=== PATIENT | female | born 1945 | race Caucasian/White ===

== ENCOUNTER 2023-11-24 03:45 | Inpatient (IN) | payer MEDICARE, MEDICAID, SELFPAY ==
[2023-11-24] VITALS (54 sets, daily range): BP systolic 75–158; BP diastolic 44–86; PULSE 69–125; RESP 15–44; TEMP 36.8–38.7; O2SAT 78–100; BMI 27.2
--- NOTE | 2023-11-24 | ECHO_ITS ---
Patient Info Name: Aline Gomez Age: 78 years : 1945 Gender: Female Ht: 65 in Wt: 163 lbs BSA: 1.86 m2 HR: 107 bpm BP: 140 / 62 mmHg Heart Rhythm: Sinus Rhythm Technical Quality: Fair Exam Date: 11/24/2023 1:59 PM Exam Location: Echo Lab Patient Status: Inpatient Admit Date: 11/24/2023 Staff Ordering Physician: Memo Moore MD Operator Assistant I Cementing: Mckenzie Gorman RDCS Attending Provider: Anselmo Moser MD Exam Type: CA echo doppler color flow Study Info Indications - chf Complete two-dimensional, color flow and Doppler transthoracic echocardiogram is performed. Summary 1. Complete two-dimensional, color flow and Doppler transthoracic echocardiogram is performed. 2. Mild LV enlargement with systolic dysfunction ejection fraction approximately 35%. 3. Paradoxical septal motion due to bundle branch block. 4. Mild aortic valve stenosis valve area 1.2 cm2. 5. Trivial AI. Left Ventricle Left ventricular chamber dimension is mildly enlarged. Left ventricular systolic function is moderately reduced, estimated at 35-40%. Left ventricular septal wall motion is abnormal with septal motion related to bundle branch block. The left ventricular diastolic function is grade I diastolic dysfunction. Right Ventricle Right ventricular chamber dimension is normal. Left Atria Left atrial chamber dimension is mildly enlarged. Right Atria Right atrial chamber dimension is normal. Aortic Valve The aortic valve is trileaflet. There is mild aortic valve stenosis. There is trace aortic valve regurgitation. Pulmonic Valve The pulmonic valve is not well visualized. Mitral Valve The mitral valve has normal leaflets. There is no mitral valve regurgitation. Tricuspid Valve The tricuspid valve leaflets are normal. There is trace tricuspid valve regurgitation. Pericardium/Pleural The pericardium appears normal. Aorta The aortic root size at the sinus of Valsalva is normal. Report Signatures
--- NOTE | ~2023-11-24 | XR_ITS ---
Portable chest x-ray Comparison: 11/25/2023 Clinical History: Respiratory failure Findings: Endotracheal tube and NG tube are in satisfactory positions. Probable minimal groundglass pulmonary disease present diffusely. Stable calcified right midlung granuloma. Cardiomediastinal silh ouette is stable. Bones and soft tissues are unremarkable. Impression: Probable minimal diffuse pulmonary groundglass disease. Correlate for pulmonary edema or atypical inf ection. Support tubes, as above. Reviewed, dictated and finalized at [facility]. CEMENTER Impression: Probable minimal diffuse pulmonary groundglass disease. Correlate for pulmonary edema or atypical infection. Support tubes, as above.
--- NOTE | ~2023-11-24 | XR_ITS ---
Portable chest x-ray Comparison: 11/27/2023 Clinical History: Respiratory failure Findings: Endotracheal tube and NG tube are in satisfactory position. There is extensive groundglass pulmonary disease. Cardiomediastinal silhouette is stable. Bones and soft tissues are unremarkable. Impression: Stable diffuse groundglass pulmonary disease, relatively sparing the apices. Support tubes, as above. Reviewed, dictated and finalized at location . OR FIELD ENGINEER Impression: Stable diffuse groundglass pulmonary disease, relatively sparing the apices. Support tubes, as above.
--- NOTE | ~2023-11-24 | XR_ITS ---
EXAMINATION: XR chest 1V portable DATE: 11/25/2023 05:23 INDICATION: Respiratory failure. TECHNIQUE: A single frontal view of the chest was obtained. COMPARISON: Chest single view 11/24/2023, chest CT 11/24/2023 FINDINGS: There are interstitial and airspace opacities throughout the lungs bilaterally. A calcified right lung nodule is consistent with old granulomatous disease. No pleural effusion or pneumothorax. The heart size is normal. The endotracheal tube tip is 3.2 cm above the phillip. The nasogastric tube tip is in the stomach. IMPRESSION: 1. Diffuse lung disease with mild improvement, consistent with pulmonary edema versus pneumonia. Reviewed, dictated and finalized at location A. INIST CLASS B
--- NOTE | ~2023-11-24 | XR_ITS ---
EXAMINATION: XR abdomen gastric tube insert INDICATION: OG tube placement TECHNIQUE: Portable AP KUB-NG at 1432 hours COMPARISON: 11/24/2023 FINDINGS: The OG tube is followed as far as the stomach. The proximal side port is in the stomach. Th e endotracheal tube is approximately 4.5 cm above the phillip. Diffuse lung disease is again noted, li mercy pulmonary edema. IMPRESSION: 1. OG tube in the stomach. Reviewed, dictated and finalized at location L. CUSTOMIZER IMPRESSION: 1. OG tube in the stomach.
--- NOTE | ~2023-11-24 | US_ITS ---
EXAMINATION: US venous doppler [facility] DATE: 11/24/2023 15:43 INDICATION: Possible liver malignancy. Chronic DVT. TECHNIQUE: Grayscale images without and with compression and Doppler images of the bilateral lower ex tremity veins were obtained. COMPARISON: None FINDINGS: The right common femoral vein, profunda (deep) femoral vein, femoral vein, popliteal vein, peroneal v ein, posterior tibial veins, and greater saphenous vein are patent. The left common femoral vein is partially compressible, with eccentric intraluminal thrombus. The pro adrianne (deep) femoral vein, femoral vein, popliteal vein, peroneal vein, posterior tibial veins, and greater saphenous vein are patent. IMPRESSION: Likely chronic nonocclusive left common femoral vein thrombus. Otherwise patent bilateral lower extre mity veins. No evidence of acute deep venous thrombosis. Reviewed, dictated and finalized at location K. R WEIGHER IMPRESSION: Likely chronic nonocclusive left common femoral vein thrombus. Otherwise patent bilateral lower extremity veins. No evidence of acute deep venous thrombosis.
--- NOTE | ~2023-11-24 | CT_ITS ---
EXAMINATION: CT chest abdomen pelvis wo con DATE: 11/24/2023 06:36 INDICATION: Abdominal pain. TECHNIQUE: Computed tomography (CT) of the chest, abdomen, and pelvis was performed without intraveno us contrast. Automated exposure control and iterative reconstruction technique were employed. The dos e-length product was 904.99 mGy-cm. COMPARISON: None FINDINGS: CHEST CT: There are groundglass opacities and septal thickening throughout the lungs bilaterally. A calcified r ight lung nodule and calcified right hilar lymph nodes are consistent with old granulomatous disease. No pleural effusion. The heart size is normal. There are coronary artery calcifications. No pericard ial effusion. There is chronic anterior wedging of multiple midthoracic vertebral bodies. There is mo derate thoracic spondylosis. ABDOMEN/PELVIS CT: Calcifications in the liver and spleen are consistent with old granulomatous disease. There is an ill -defined 10 cm hypodense mass in the liver. Calcifications in the liver and spleen are consistent wit h old granulomatous disease. The gallbladder is absent. The pancreas, adrenal glands, and kidneys are normal. There is calcified atherosclerosis of the aorta and many of the other arteries. There is div erticulosis of the colon without evidence of diverticulitis. There are no dilated loops of bowel. The appendix is not visualized. There are no pathologically enlarged lymph nodes. There is no free intra peritoneal fluid. There is lumbar levoscoliosis and severe spondylosis. IMPRESSION: 1. Diffuse lung disease, likely moderate pulmonary edema. 2. 10 cm liver mass. The differential diagnosis includes focal steatosis, malignancy, and hemangioma. Abdomen MRI without and with contrast is recommended. Reviewed, dictated and finalized at location E. SETTER IMPRESSION: 1. Diffuse lung disease, likely moderate pulmonary edema. 2. 10 cm liver mass. The differential diagnosis includes focal steatosis, malig julius, and hemangioma. Abdomen MRI without and with contrast is recommended.
--- NOTE | ~2023-11-24 | CT_ITS ---
EXAMINATION: CT chest abdomen pelvis wo con DATE: 11/27/2023 10:05 INDICATION: Liver mass. Alveolar hemorrhage. Pneumonia. TECHNIQUE: Computed tomography (CT) of the chest, abdomen, and pelvis was performed with 100 mL Omnip aque-350 intravenous contrast. Automated exposure control and iterative reconstruction technique were employed. The dose-length product was 1454.82 mGy-cm. COMPARISON: 11/24/2023 FINDINGS: CHEST CT: Endotracheal tube tip is 3.2 cm above the phillip. Significant interval progression of diffuse groundg lass opacities throughout both lungs with more dense consolidation with air bronchograms and without evident volume loss in the dependent aspect of the bilateral upper and lower lobes. There are very sm all bilateral pleural effusions. Heart size is normal. Atherosclerotic coronary artery calcifications . No pericardial effusion. Endobronchial filling defect in the left mainstem bronchus which is new si nce study 3 days prior most consistent with mucous. Calcified nodules in the superior segment of the right lower lobe and calcified right hilar lymph nodes consistent with old granulomatous disease. Hea rt size is normal. Atherosclerotic coronary artery calcifications. No pericardial effusion. Thoracic aorta is normal in caliber. No pathologically enlarged thoracic lymphadenopathy. Moderate thoracic sp ondylosis with chronic anterior wedging of multiple mid thoracic vertebral bodies. ABDOMEN/PELVIS CT: Nasogastric tube tip in the stomach. A few hepatic and splenic calcifications consistent with old gra nulomatous disease. Again seen is a an approximately 12 cm masslike region of decreased density in th e cephalad aspect of the right hepatic lobe. Gallbladder is absent. Pancreas, bilateral adrenal gland s and kidneys are normal. Severe diverticulosis with descending and sigmoid colon predominance. No fo ramirez surrounding inflammatory stranding to suggest diverticulitis. The appendix is not visualized. No pericecal inflammatory change to suggest acute appendicitis. No bowel obstruction. [place] catheter wit hin the decompressed bladder. Uterus and bilateral adnexa are unremarkable. Minimal ascites scattered throughout the abdomen and pelvis. No abscess or free intraperitoneal gas. No pathologically enlarge d abdominal or pelvic lymphadenopathy. The left external and common iliac veins appear diminutive wit h central calcification potentially chronically occluded with multiple subcutaneous collaterals exten ding between the left and right inguinal regions. Mild lumbar levocurvature with severe spondylosis. IMPRESSION: 1. Interval progression of diffuse lung disease which could represent either severe pulmonary edema, pneumonia or combination thereof. 2. Very small bilateral pleural effusions. 3. 12 cm masslike region of decreased density at the cephalad aspect right hepatic lobe which could r epresent focal hepatic steatosis, malignancy either primary or metastatic disease or other benign mitzi plasm such as hemangioma. Recommend further evaluation with pre and postcontrast MRI when clinically appropriate. 4. Extensive diverticulosis. 5. Minimal ascites. Reviewed, dictated and finalized at location A. WORK WRAPPER EXAMINER IMPRESSION: 1. Interval progression of diffuse lung disease which could represent either se sierra pulmonary edema, pneumonia or combination thereof. 2. Very small bilateral pleural effusions. 3. 12 cm masslike region of decreased density at the cephalad aspect right hepa tic lobe which could represent focal hepatic steatosis, malignancy either prima ry or metastatic disease or other benign neoplasm such as hemangioma. Recommend further evaluation with pre and postcontrast MRI when clinically appropriate. 4. Extensive diverticulosis. 5. Minimal ascites.
--- NOTE | ~2023-11-24 | XR_ITS ---
EXAMINATION: XR abdomen gastric tube insert, XR chest ET placement DATE: 11/24/2023 11:05 INDICATION: Intubation. Orogastric tube insertion. TECHNIQUE: 1. Portable semierect AP view of the chest was obtained for assessment of endotracheal tube position. 2. Portable semierect AP view of the abdomen was obtained for evaluation of feeding tube placement. COMPARISON: Earlier studies from 11/24/2023 FINDINGS: Chest: Endotracheal tube tip 1.8 cm above the phillip. Diffuse interstitial and mild patchy airspace opacitie s throughout both lungs. No pleural effusion or pneumothorax. The cardiomediastinal silhouette is nor mal. KUB: Nasogastric tube extends into the stomach into the duodenum with distal tip near the level of the lig ament of Treitz and proximal side port in the third portion of duodenum. No dilated loops of gas-fill ed bowel to suggest obstruction. Mild lumbar levocurvature with severe spondylosis. IMPRESSION: 1. Endotracheal tube tip in expected position 1.8 cm above the phillip. 2. Nasogastric tube extends through the stomach into duodenum with distal tip near the ligament of Tr eitz. Consider withdrawal by [address] the distal tip within the stomach. 3. Diffuse bilateral lung disease most likely moderate pulmonary edema with differential including pn eumonia. Reviewed, dictated and finalized at location A. WORKER BULBS IMPRESSION: 1. Endotracheal tube tip in expected position 1.8 cm above the phillip. 2. Nasogastric tube extends through the stomach into duodenum with distal tip n ear the ligament of Treitz. Consider withdrawal by [address] the distal ti p within the stomach. 3. Diffuse bilateral lung disease most likely moderate pulmonary edema with dif ferential including pneumonia.
--- NOTE | ~2023-11-24 | XR_ITS ---
EXAMINATION: XR chest 1V portable INDICATION: Respiratory failure TECHNIQUE: Portable AP chest at 1107 hours COMPARISON: 11/26/2023 FINDINGS: Diffuse interstitial and airspace opacities have developed throughout all lung zones. The e ndotracheal tube ends approximately 3.8 cm above the phillip. The nasogastric tube is followed as far as the stomach. Its tip is beyond the inferior margin of the radiograph. No pleural effusion or pneum othorax. The cardiomediastinal silhouette is normal. IMPRESSION: 1. Interval development of diffuse lung disease, consistent with pulmonary edema and/or pneumonia. Reviewed, dictated and finalized at location L. OID IOS DEVELOPER IMPRESSION: 1. Interval development of diffuse lung disease, consistent with pulmonary dede a and/or pneumonia.
--- NOTE | ~2023-11-24 | XR_ITS ---
EXAMINATION: XR chest 1V portable INDICATION: Hypoxia TECHNIQUE: Portable AP chest at 1528 hours COMPARISON: 1107 hours FINDINGS: The endotracheal tube ends approximately 4.4 cm above the phillip. The nasogastric tube is f ollowed as far as the stomach. Its tip is beyond the inferior margin of the radiograph. Diffuse inter stitial and airspace opacities persist throughout all lung zones without significant change. No pleur al effusion or pneumothorax. The cardiomediastinal silhouette is stable. IMPRESSION: 1. Stable diffuse lung disease, consistent with pneumonia and/or pulmonary edema. Reviewed, dictated and finalized at location L. RONMENTAL SERVICES FLOOR TECH IMPRESSION: 1. Stable diffuse lung disease, consistent with pneumonia and/or pulmonary dedehumera rojas
--- NOTE | ~2023-11-24 | XR_ITS ---
EXAMINATION: XR chest 1V portable DATE: 11/24/2023 04:46 INDICATION: Weakness. TECHNIQUE: A single frontal view of the chest was obtained. COMPARISON: None. FINDINGS: A calcified right lung nodule is consistent with old granulomatous disease. No pleural effu yi or pneumothorax. The heart size is normal. IMPRESSION: 1. No acute cardiopulmonary disease. Reviewed, dictated and finalized at location E. WEB DEVELOPER
--- NOTE | ~2023-11-24 | CT_ITS ---
Non-contrast Head CT History: Encephalopathy Technique: Axial non-contrast imaging of the brain was performed. Dose reduction technique was used on this scan by utilizing automated exposure control and iterative reconstruction technique. The dose -length product (DLP) was 605.33 mGy-cm. Findings: There is no evidence of intracranial hemorrhage, mass lesion, or acute infarct. Brain par enchyma appears normal. The ventricles and subarachnoid spaces are normal in size. The calvarium ap pears normal. The visualized paranasal sinuses and mastoid air cells are clear. Impression: No significant abnormality seen. Reviewed, dictated and finalized at location . ULA CLERK Impression: No significant abnormality seen.
--- NOTE | 2023-11-24 04:03 | ECG_ITS ---
Measurements Intervals [place] Rate: 96 P: 20 AL: 161 QRS: -37 QRSD: 146 T: 113 QT: 382 QTc: 485 Interpretive Statements SINUS RHYTHM WITH SINUS ARRHYTHMIA LEFT AXIS DEVIATION [QRS AXIS < -30] LEFT BUNDLE BRANCH BLOCK [120+ ms QRS DURATION, 80+ ms Q/S IN V1/V2, 85+ ms R IN I/aVL/V5/V6] ABNORMAL ECG NO PREVIOUS ECG AVAILABLE FOR COMPARISON Electronically Signed On 11-24-2023 7:46:14 FINANCIAL INSTITUTION MANAGER by Domo Tuttle M.D.
[2023-11-24] MEDS: ONDANSETRON INJ 4 MG/2 ML VIAL IV PUSH (04:55)
[2023-11-24 04:59] LABS: Basophils Percent Auto 0.2 % (0.2-1.2); Eosinophils Percent Auto 0.1 % (0-4.4); Hemoglobin 8.2 g/dL (12.0-15.0); Immature Granulocyte Absolute 0.33 K/mm3 (0.00-0.031); Immature Granulocyte Percent A 1.8 % (0-0.5); Lymphocytes Absolute Auto 0.88 K/mm3 (0.9-3.2); Lymphocytes Percent Auto 4.7 % (18.3-44.2); Mean Corpuscular HGB Conc 31.5 g/dl (32-36); Mean Corpuscular Hemoglobin 27.8 pg (26-34); Mean Corpuscular Volume 88.1 fl (80-100); Mean Platelet Volume 11.5 fl (7.4-10.4); Monocytes Absolute Auto 1.6 K/mm3 (0.1-0.6); Monocytes Percent Auto 8.4 % (2.6-8.5); Neutrophils Absolute Auto 15.9 K/mm3 (1.3-6.7); Neutrophils Percent Auto 84.8 % (45.5-73.1); Platelet Count Result 284 k/mm3 (150-375); Red Blood Count 2.95 M/mm3 (4.2-5.4); White Blood Count 18.8 K/mm3 (4.5-10.0)
[2023-11-24 05:16] LABS: Alanine Aminotransferase 61 U/L (6-35); Albumin Level 2.9 g/dL (3.5-5.1); Alkaline Phosphatase 112 U/L (38-126); Anion Gap 14 mmol/L (8-16); Appearance Urine Turbid (Clear); Aspartate Amino Transferase 96 U/L (14-36); Bacteria Urine None Seen /hpf; Bilirubin Urine 1+ (Negative); Blood Urea Nitrogen 67 mg/dL (7-17); Blood Urine Negative (Negative); Calcium 8.7 mg/dL (8.4-10.2); Carbon Dioxide 19 mmol/L (22-30); Chloride 96 mmol/L (98-107); Color Urine Dark Yellow (Yellow); Estimated Glomerular Filt Rate 24; Glucose 268 mg/dL (65-110); Glucose Urine UA Negative (Negative); Ketones Urine Trace mg/dL (Negative); Leukocyte Esterase Ur Negative LEU/UL (Negative); Need Manual Microscopic Reviewed; Nitrate Urine Negative (Negative); Non Pathogenic Casts >20; Potassium 4.7 mmol/L (3.4-5.0); Protein Urine 1+ mg/dL (Negative); RBC Urine 0-2 /hpf (0-2); Sodium 129 mmol/L (137-145); Specific Grav Ur 1.022 (1.001-1.035); Squamous Epithelial Cell Urine Occasional /hpf (Few); WBC Urine 0-5 /hpf
[2023-11-24 05:17] LABS: Lipase 16 U/L (23-300); Magnesium 1.4 mg/dL (1.6-2.3)
--- NOTE | 2023-11-24 05:17 | PC.NURSE ---
Pt's O2 sat upon arrival was reading 70's with good wave form, but then would gradually move up to 89%. Pt was tachypnic 40's. Discussed with Dr Soni that I put pt on O2 and found to increase her sat to 95%. Pt now tachypnic 30's. ABG ordered.
[2023-11-24 05:18] LABS: Add Urine Microscopic? YES
[2023-11-24 05:23] LABS: Lactic Acid Reflex 4.4 mmol/L (0.7-2.0)
[2023-11-24 05:27] LABS: Alveolar/Arterial O2 Gradient 161.4 mmHg; Base Excess ABG -3.3 mEq/l (+/-2.0); Fractional Inspired Oxygen 36 %; Oxygen Content ABG 11.9 %vol (16.0-22.0); Oxygen Saturation ABG 92.8 % (95.0-100.0); Oxyhemoglobin 90.8 % THb (90.0-100.0); PCO2 ABG 29.5 mmHg (35.0-45.0); PO2 ABG 61.1 mmHg (80.0-100.0); Total Hemoglobin 9.3 g/dL (12.0-18.0); pH ABG 7.449 (7.350-7.450)
[2023-11-24 05:28] LABS: Device NASAL CANNULA; Modified Allen's Test Pass; Site Drawn RIGHT RADIAL
[2023-11-24 05:32] LABS: Influenza A QL RT-PCR Negative (Negative); Influenza B QL RT-PCR Negative (Negative); RSV RNA, RT-PCR Negative (Negative); SARS-CoV-2 RNA PCR Negative (Negative)
[2023-11-24 05:33] LABS: Troponin I 0.087 ng/mL (0.000-0.034)
--- NOTE | 2023-11-24 05:38 | ED.GENADULT ---
HPI - General Adult General Chief complaint: Unspecified Stated complaint: UTI, SICK CASE Time Seen by Provider: 11/24/23 03:59 History of Present Illness HPI narrative: Patient 78-year-old female who presents emergency department with chief complaint of generalized weakness. Patient has recently had nausea and vomiting for 2 days also some shortness of breath patient reports she was diagnosed with the UTI on Friday and started on Cipro patient has been nauseated since starting the Cipro med has also been having problems where she has been breathing fast. Related Data Allergies Allergy/AdvReac Type Severity Reaction Status Date / Time No Known Allergies Allergy Verified 11/24/23 04:55 Review of Systems Review of Systems: A 10 system review of systems was completed on the patient and is negative except for what is stated in the HPI. Nursing and ancillary documentation was reviewed. Exam Narrative: GENERAL: Well-appearing, well-nourished, and in no acute distress. HEAD: Normocephalic, atraumatic. EYES: PERRLA and EOMI. ENT: Nares clear, no rhinorrhea or epistaxis. Mucous membranes moist. NECK: Supple. CHEST: Clear to auscultation. No respiratory distress. HEART: Regular rate and rhythm. No murmur heard. Normal peripheral pulses. ABDOMEN: Soft, nontender, nondistended, normal active bowel sounds. EXTREMITIES: Normal range of motion. No edema. SKIN: Warm, dry, no rash. NEURO: No focal deficits. Alert and oriented x3. PSYCH: Normal mood and affect. Course Vital Signs Vital signs: Vital Signs Temperature 36.8 C 11/24/23 04:00 Pulse Rate 98 11/24/23 04:00 Respiratory Rate 44 H 11/24/23 04:00 Blood Pressure 103/55 L 11/24/23 04:00 Pulse Oximetry 78 L 11/24/23 04:00 Temperature 36.8 C 11/24/23 04:00 Pulse Rate 91 11/24/23 06:46 Respiratory Rate 41 H 11/24/23 06:46 Blood Pressure 102/50 L 11/24/23 06:46 Pulse Oximetry 94 11/24/23 07:09 Oxygen Delivery Nasal Cannula 11/24/23 07:09 Oxygen Flow Rate 8 11/24/23 07:09 Medical Decision Making [facility] Narrative Medical decision making narrative: Differential diagnosis includes sepsis, UTI, ureterolithiasis, pneumonia, viral syndrome Chest x-ray did not show any focal infiltrate CT chest abdomen pelvis showed a 10 cm liver mass and also showed diffuse lung disease. [place] [address] electrolytes showed renal insufficiency with a creatinine at 2.0 lactic acid was elevated at 4.4 procalcitonin was elevated at 2 point 5 troponin was elevated at 0.087 magnesium was low at 1.4 Patient received 30 per kilos of saline boluses patient also received cefepime and vanc to cover for sepsis. The patient was negative for COVID flu and RSV The case was discussed with the hospitalist the patient will receive further care in the inpatient setting. Vital Signs Vital Signs: Vital Signs Temperature 36.8 C 11/24/23 04:00 Pulse Rate 98 11/24/23 04:00 Respiratory Rate 44 H 11/24/23 04:00 Blood Pressure 103/55 L 11/24/23 04:00 Pulse Oximetry 78 L 11/24/23 04:00 Temperature 36.8 C 11/24/23 04:00 Pulse Rate 91 11/24/23 06:46 Respiratory Rate 41 H 11/24/23 06:46 Blood Pressure 102/50 L 11/24/23 06:46 Pulse Oximetry 94 11/24/23 07:09 Oxygen Delivery Nasal Cannula 11/24/23 07:09 Oxygen Flow Rate 8 11/24/23 07:09 Lab Data 11/24/23 04:47 11/24/23 04:47 Labs: Lab Results 11/24/23 Range/Units 04:47 WBC 18.8 H (4.5-10.0) K/mm3 RBC 2.95 L (4.2-5.4) M/mm3 Hgb 8.2 L (12.0-15.0) g/dL Hct 26.0 L (37.0-47.0) % MCV 88.1 (80-100) fl MCH 27.8 (26-34) pg MCHC 31.5 L (32-36) g/dl RDW 13.0 (11.5-14.5) % Plt Count 284 (150-375) k/mm3 MPV 11.5 H (7.4-10.4) fl Immature Gran % (Auto) 1.8 H (0-0.5) % Neut % (Auto) 84.8 H (45.5-73.1) % Lymph % (Auto) 4.7 L (18.3-44.2) % [place] % (Auto) 8.4 (2.6-8.5) % E
[2023-11-24 05:43] LABS: Procalcitonin 2.5 ng/mL
[2023-11-24] MEDS: SODIUM CHLORIDE 0.9% IV 1,000 ML 999 ML IV CONT ×3 (05:45→20:10)
[2023-11-24] MEDS: MAGNESIUM SULF 2 GM/WATER 50ML 2 GM/50 ML BAG IVPB (05:47)
--- NOTE | 2023-11-24 07:14 | PC.NURSE ---
Report to MARCELINA Alvarado.
[2023-11-24 07:30] LABS: Lactic Acid Reflex 2.8 mmol/L (0.7-2.0)
[2023-11-24 07:51] LABS: Partial Thromboplastin Time 96.2 SECONDS (22.3-36.8)
[2023-11-24 07:52] LABS: Prothrombin Time > 120.0 Seconds (11.1-14.7)
[2023-11-24 07:54] LABS: Reflex Lactic Acid Yes or No Add Lactic
[2023-11-24 07:56] LABS: INR > 20.0
[2023-11-24] MEDS: PHYTONADIONE INJ 10 MG/ML AMP 5 MG SUB-Q (08:09)
[2023-11-24] MEDS: CEFEPIME 2 GM/NS 50 ML 2 GM/50 ML BAG IVPB (08:09)
[2023-11-24 08:38] LABS: Lactic Acid 2.8 mmol/L (0.7-2.0)
--- NOTE | 2023-11-24 09:53 | PM.IMHP ---
H&P: HPI History of Present Illness Date/Time: 11/24/23 09:53 Chief Complaint: Weakness Narrative: 78yo female with hx of DM and DVT >10 yrs ago on Warfarin here for weakness. Patient was noted to have elevated INR about 2 weeks ago. She normally takes 6 mg daily except for 4 mg on Xahdol-Dikczawjz-Xtglis. Her physician told her stop her Coumadin for 2 days and then decrease the Coumadin dose to 4 mg daily. She has been on this dose for about a week. She has not checked her INR since that time. In the interim., she has developed fatigue and noted that her glucose was intermittently poorly controlled. She was seen at an outside hospital few days ago. Patient also was having nausea and vomiting. She diagnosed with the UTI and treated with ciprofloxacin and antinausea medication. She denies any melena or hematochezia. No hematuria or dysuria. She has been feeling weak. No fevers and but having subjective chills. She denies any history of atrial fibrillation, coronary disease, thyroid disease, sleep apnea, COPD or asthma. No history of kidney disease. She does not believe that she has anemia. No home O2. She walks unassisted. She has a history of DVT in the left lower extremity that was extensive and this was greater than 10 years ago. No history of PE. Patient continued to have the nausea and vomiting. Son states the emesis was mostly carney color became more blackish carney. He denies that it was coffee-ground emesis. She presented to the emergency room for evaluation. In the emergency room, she was tachypneic with respiratory rate of 44 her pulse ox was 78% on room air. Blood pressure was 103/55. She was afebrile. Influenza, COVID and RSV PCR were negative. Lactic acid was 4.4. White count was 18 K with left shift. Hemoglobin was 8.2. Platelet count was normal. ABG shows 7.4 03/17/2061 on 4 L. Sodium was 129, bicarb 19, BUN 67 and creatinine 2. Glucose was 268. Troponin elevated at 0.087. Procalcitonin was 2.5. Urinalysis had some minor abnormalities but not consistent with UTI. CT of the chest, abdomen and pelvis showed diffuse lung disease likely moderate pulmonary edema. She also had a 10 cm liver mass with differential diagnosis listed. Blood cultures collected. Patient was given ondansetron. She was started on cefepime. Magnesium was replaced. Vancomycin also was ordered. There was some difficulty obtaining her coagulation panel but this did return showing PT greater than 120, INR greater than 20 and PTT 96. Initially she was given vitamin K 5 mg subQ in the ER. She was admitted to IMU but was noted to have hemoptysis. No epistaxis. Her oxygen requirement has increased to 8L. Case discussed with Hematology who recommended vitamin K 10 mg IV once and FFP. Discussed with fence erector supervisor with plans to transfer to ICU. Review of Systems Review of Systems: All systems reviewed & are unremarkable except as noted in HPI and below PMFSH Past Medical History Medical History Diabetes mellitus DVT (deep venous thrombosis) extensive LLE Gout Peripheral neuropathy Surgical History Surgical History Hx of cholecystectomy with possible appy at the same time Family History Family History Father Diabetes mellitus Social History Social History Social History: Lives alone. No hx of alcohol, tobacco or drug use. Full code. Nominates her sons to be the individuals who would make decisions for her if she is unable Smoking status: Never smoker Alcohol intake: never Substance use: never Substance use type: does not use Spiritual care concerns: No Meds Home Medications and Allergies Home Medications Medication Instructions Recorded Confirmed Type albuterol sulfate 90 mcg/actuation 2
[2023-11-24 10:05] LABS: Basophils Percent Auto 0.2 % (0.2-1.2); Eosinophils Percent Auto 0.1 % (0-4.4); Hematocrit 26.6 % (37.0-47.0); Hemoglobin 7.8 g/dL (12.0-15.0); Immature Granulocyte Absolute 0.28 K/mm3 (0.00-0.031); Immature Granulocyte Percent A 1.2 % (0-0.5); Lymphocytes Absolute Auto 1.23 K/mm3 (0.9-3.2); Lymphocytes Percent Auto 5.5 % (18.3-44.2); Mean Corpuscular HGB Conc 29.3 g/dl (32-36); Mean Corpuscular Hemoglobin 27.9 pg (26-34); Mean Platelet Volume 11.4 fl (7.4-10.4); Monocytes Absolute Auto 2.1 K/mm3 (0.1-0.6); Monocytes Percent Auto 9.5 % (2.6-8.5); Neutrophils Absolute Auto 18.8 K/mm3 (1.3-6.7); Neutrophils Percent Auto 83.5 % (45.5-73.1); Platelet Count Result 306 k/mm3 (150-375); Red Cell Distribution Width 13.1 % (11.5-14.5); White Blood Count 22.5 K/mm3 (4.5-10.0)
[2023-11-24] MEDS: PHYTONADIONE ADULT INJ 10 MG in DEXTROSE 5% IN WATER 50 ML 100 MG IVPB (10:06)
[2023-11-24] MEDS: VANCOMYCIN 1,000 MG/NS 250 ML 1,000 MG/250 ML BAG 250 MG IVPB (10:06)
[2023-11-24] MEDS: SODIUM CHLORIDE 0.9% IV 1,000 ML 125 ML IV CONT (10:09)
[2023-11-24 10:43] LABS: Macrocytosis 1+ (NORMAL); Platelet Estimate Adequate (Adequate); Schistocytes Rare (NORMAL)
[2023-11-24 10:44] LABS: Hypochromasia 1+ (NORMAL)
[2023-11-24 10:47] LABS: Creatine Kinase 51 U/L (30-135)
[2023-11-24 10:47] LABS: Troponin I 0.069 ng/mL (0.000-0.034)
[2023-11-24] MEDS: ETOMIDATE 20 MG/10 ML AMPUL IV PUSH (10:48)
[2023-11-24] MEDS: PANTOPRAZOLE SODIUM IV 40 MG VIAL IV PUSH ×2 (10:48→20:05)
[2023-11-24] MEDS: ROCURONIUM BROMIDE 50 MG/5 ML VIAL IV PUSH (10:48)
--- NOTE | 2023-11-24 10:48 | WPDPROCEDUR ---
Procedures Intubation Intubation Date: 11/24/23 Intubation Time: 10:30 Consent: Verbal consent obtained from patient and her son at bedside A pre-procedural Time-Out was completed immediately before starting the procedure and confirmed: Patient Identification, Site, Procedure, Patient Position and the Availability of Requisite Equipment: Yes Sedative: etomidate Mg given: 20 Paralytic: rocuronium Mg given: 50 Laryngoscope: fiber optic video scope Assist device used: fiber optic device ET tube size: cuffed Tube secured depth (cm): 23 Tube secured location: lips Tube placement confirmation: visualized tube passing through cords, equal breath sounds bilaterally, no breath sounds over epigastrium and confirmation by capnometry Patient tolerated procedure: well Intubation complications: none Additional comments: few bloody secretions seen in oropharynx and on tracehal inlet
[2023-11-24] MEDS: FENTANYL 2,500MCG/NS250ML(*CRX 2,500 MCG/250 ML BAG IV CONT (10:49)
[2023-11-24] MEDS: MIDAZOLAM 100MG/NS 100ML(*CRX) 100 MG/100 ML BAG IV CONT (10:50)
[2023-11-24 10:51] LABS: Fibrinogen 289 mg/dl (215-510)
[2023-11-24 10:58] LABS: NT Pro B Type Natriuretic Pept 3980 pg/mL (19.9-100)
[2023-11-24 11:04] LABS: Prothrombin Time > 120.0 Seconds (11.1-14.7)
[2023-11-24 11:05] LABS: D Dimer 15.78 ug/mL (<0.48); INR > 20.0
[2023-11-24 11:19] LABS: Iron 31 ug/dL (37-170); Percent Iron Saturation 16 % (20-50)
[2023-11-24 11:20] LABS: Hemoglobin A1C 8.5 % (<5.7)
--- NOTE | 2023-11-24 11:22 | ADMGEN ---
This patient, Aline Gomez, was admitted to Intensive Care Unit-5 on 11/24/23 at 0953. Patient/family oriented to hospital policies and general routines including ID bracelet, bed and alarms, visiting hours, pain management, procedures, bathroom and other care routines, personal items, smoking policy, room service/diet, and visiting hours. Information on how to activate the Rapid Response Team has been discussed. Patient/Family are encouraged to report perceived risks to care and to ask questions if they do not understand what they are told or what they should do.
--- NOTE | 2023-11-24 11:23 | ADMGEN ---
This patient, Aline Gomez, was admitted to IMU 207 on 11/24/23 at 0849. Patient/family oriented to hospital policies and general routines including ID bracelet, bed and alarms, visiting hours, pain management, procedures, bathroom and other care routines, personal items, smoking policy, room service/diet, and visiting hours. Information on how to activate the Rapid Response Team has been discussed. Patient/Family are encouraged to report perceived risks to care and to ask questions if they do not understand what they are told or what they should do.
--- NOTE | 2023-11-24 11:24 | PC.NURSE ---
This patient, Aline Gomez, was transferred to ICU 5 on 11/24/23 at 0953. Personal belongings sent with patient. Report given to Pj HEWITT. Appropriate documentation sent with patient.
--- NOTE | 2023-11-24 11:26 | PC.NURSE ---
Upon admission to IMU, pt appeared pale. She was on 8 L NC, appeared labored, and was abdominal breathing. Pt was coughing up marisela blood into an emesis bag. Son stated that the coughing up blood started after she came back from CT. Dr Moser was notified of patient's condition who promptly saw patient. Dr Moser spoke with Dr Moore and decided to transfer pt to the ICU.
[2023-11-24] MEDS: SODIUM CHLORIDE 0.9% IV 250 ML 30 ML IV CONT (11:32)
[2023-11-24] MEDS: RAPID SEQUENCE INTUBATION KIT 1 EACH (11:33)
[2023-11-24] MEDS: MIDAZOLAM HCL (*CRX) 2 MG/2 ML VIAL 4 MG IV PUSH (11:33)
[2023-11-24] MEDS: HUMAN PROTHROMBIN COMPLEX(PCC) 2,000 UNITS in PREMIXIV 0 ML 504 UNITS IV CONT (11:35)
--- NOTE | 2023-11-24 11:37 | WPDCNINT ---
Assessment and Plan Assessment and plan (1) Acute respiratory failure: Code(s): J96.00 - Acute respiratory failure, unspecified whether with hypoxia or hypercapnia Status: Acute Assessment and Plan: On arrival to ICU patient was hypoxic on 10 L nasal cannula. She was in mild respiratory distress and tachypneic. Using accessory muscles and abdominal breathing. Patient also has hemoptysis and upper GI bleed hence not a candidate for NIPPV Discussed option of intubation and mechanical ventilation secure airway and elevated respiratory distress with the patient and her son the both were agreeable after understanding the risk and benefit. Patient intubated in ICU Vent settings and post intubation chest x-ray reviewed PCR for influenza RSV and COVID negative CT scan of the chest shows diffuse lung disease likely pulmonary edema versus alveolar hemorrhage Reverse coagulopathy Consult pulmonary for possible bronchoscopy Empiric antibiotics vancomycin and cefepime Repeat ABG ordered (2) Elevated troponin: Code(s): R79.89 - Other specified abnormal findings of blood chemistry Status: Acute Assessment and Plan: Likely secondary to bleeding, respiratory failure. Not a candidate for anticoagulation or antiplatelet agent at this time. Obtain echocardiogram (3) Coagulopathy: Code(s): D68.9 - Coagulation defect, unspecified Status: Acute Assessment and Plan: Patient has been on warfarin for many years and her last INR check was more than month ago. States she had DVT in her left leg more than 10 years ago which led to initiation of warfarin. On arrival her INR was more than 20 Patient was given vitamin K and FFP was ordered Patient clearly has active GI bleed and hemoptysis which could be secondary to alveolar hemorrhage. She has been deteriorating with worsening hypoxia and respiratory distress and now requiring intubation and mechanical ventilation. She would probably not tolerate additional volume with FFP administration she will also be needing PRBC I spoke to patient regarding benefits and risks of Kcentra to reverse her coagulopathy. Explained the risk of blood clot formation to both patient and her son and they both verbalized understanding and agreed to proceed. In current situation the benefits outweigh the risks. Obtain Dopplers of lower extremity Will give 2000 units of Kcentra along with 1 unit of FFP which she is already getting. Repeat INR post administration Hold aspirin warfarin (4) Anemia: Code(s): D64.9 - Anemia, unspecified Status: Acute Assessment and Plan: Hemoglobin 7.8. Black OG tube suction In light of active bleeding will transfuse 1 unit of PRBC Monitor serial hemoglobin levels Transfuse additional blood products as needed (5) Hemoptysis: Code(s): R04.2 - Hemoptysis Status: Acute Assessment and Plan: Patient reported hemoptysis on the floor Secondary to pulmonary edema or alveolar hemorrhage which could be secondary to coagulopathy Patient now intubated Reverse coagulopathy Consult pulmonary (6) Upper GI bleed: Code(s): K92.2 - Gastrointestinal hemorrhage, unspecified Status: Acute Assessment and Plan: Patient reported vomiting carney black content at home suggestive of a GI bleed Patient was intubated and OG tube was placed with black suction suggestive upper GI bleed This could be secondary to coagulopathy or other gastric etiology Transfuse 1 unit of PRBC in light of active bleeding Reverse coagulopathy Consult GI IV Protonix q.12 hours (7) Renal insufficiency: Code(s): N28.9 - Disorder of kidney and ureter, unspecified Status: Acute Assessment and Plan: Patient presented with creatinine of 2 Baseline creatinine unknown She is getting volume in the form of PRBC and FFP Monitor urine output electrolytes and creatinine CT scan of abdomen did not show any hydronephrosis or stone Normal
[2023-11-24] MEDS: INSULIN ASPART (*BKC) 100 UNITS/ML SUB-Q ×3 (11:56→23:42)
[2023-11-24 11:57] LABS: Glucose Point of Care 288 mg/dl (65-105)
[2023-11-24 11:59] LABS: Alveolar/Arterial O2 Gradient 568.9 mmHg; Base Excess ABG -5.7 mEq/l (+/-2.0); Fractional Inspired Oxygen 100 %; HCO3 ABG 20.7 mEq/l (22.0-26.0); Oxygen Content ABG 11.2 %vol (16.0-22.0); Oxygen Saturation ABG 96.8 % (95.0-100.0); Oxyhemoglobin 95.2 % THb (90.0-100.0); PCO2 ABG 44.9 mmHg (35.0-45.0); PO2 ABG 99.2 mmHg (80.0-100.0); PO2 FiO2 Ratio Arterial Blood 0.99 %; Total Hemoglobin 8.2 g/dL (12.0-18.0)
[2023-11-24 12:00] LABS: pH ABG 7.281 (7.350-7.450)
[2023-11-24 12:01] LABS: Device VENTILATOR; Modified Allen's Test Pass; Site Drawn RIGHT RADIAL
[2023-11-24 12:02] LABS: Arterial Blood Gas PEEP 8 cmH2O; Arterial Blood Gas Tidal Volume 350 ml; Arterial Blood Gas Vent Mode CMV; Arterial Blood Gas Ventilator rate 20 /MIN
[2023-11-24 12:15] LABS: Folic Acid 5.1 ng/mL (2.76->20); Vitamin B12 > 1000.0 pg/mL (239-931)
--- NOTE | 2023-11-24 12:19 | PM.CNPUL ---
Assessment and Plan Assessment and plan (1) Acute respiratory failure: Code(s): J96.00 - Acute respiratory failure, unspecified whether with hypoxia or hypercapnia Status: Acute Assessment and Plan: A 78-year-old female patient with a history of Diabetes Mellitus and previous episodes of Deep Vein Thrombosis (DVT), who is on long-term anticoagulation therapy, presented with generalized weakness, nausea, vomiting, and a one-day history of recurrent hemoptysis, alongside significantly prolonged Prothrombin Time and INR. She is currently intubated in the intensive care unit due to acute hypoxemic respiratory failure. Chest CT findings reveal diffuse alveolar infiltrates, which align with diffuse alveolar hemorrhage linked to coagulopathy. Other possible diagnoses include viral infections, though she has tested negative for all common viral infections that cause pneumonia. The cause of the coagulopathy remains unclear at this point. There is speculation about a liver mass which may be contributing to the coagulopathy. Alternatively, she may have sepsis, which could also account for the coagulopathy. She is currently hemodynamically stable, receiving 100% oxygen, and continues to have bloody secretions through tracheal suctioning. She is undergoing specific treatment for coagulopathy. The current antibiotic regimen for potential sepsis as a cause of coagulopathy is agreed upon. The plan is to continue with the current conservative management, which includes specific treatment for coagulopathy, antibiotics, and ventilatory support. We will continue to monitor her condition closely. (2) Anemia: Code(s): D64.9 - Anemia, unspecified Status: Acute (3) Coagulopathy: Code(s): D68.9 - Coagulation defect, unspecified Status: Acute (4) Elevated troponin: Code(s): R79.89 - Other specified abnormal findings of blood chemistry Status: Acute (5) Hemoptysis: Code(s): R04.2 - Hemoptysis Status: Acute (6) Diabetes mellitus: Code(s): E11.9 - Type 2 diabetes mellitus without complications Status: Acute (7) Leukocytosis: Code(s): D72.829 - Elevated white blood cell count, unspecified Status: Acute (8) Liver mass: Code(s): R16.0 - Hepatomegaly, not elsewhere classified Status: Acute History of Present Illness History of Present Illness Consult date: 11/24/23 Chief complaint: Sepsis/Leukocytosis/Renal Insufficiency/Hypomagnes Narrative: A 78-year-old female patient, with a history of Deep Vein Thrombosis (DVT) and long-term warfarin use, experienced a prolonged International Normalized Ratio (INR) approximately two weeks ago. Her primary care provider advised a change in her warfarin dosage. Over a week ago, she began experiencing fatigue and symptoms of a urinary tract infection (UTI), leading to a diagnosis of UTI. She was subsequently placed on ciprofloxacin to treat the UTI. In the last three days, she has experienced nausea and vomiting. During her visit to the emergency room last night, she developed a cough with bloody secretions and had multiple instances of coughing up blood. A chest CT was performed, and due to worsening hypoxemia, she was transferred to the intensive care unit where she was intubated. Currently, she is fully sedated, mechanically ventilated, and receiving 100% FiO2. Tracheal suctioning again revealed blood. A chest CT showed widespread ground-glass opacities. Both her Prothrombin Time (PT) and INR have been significantly prolonged, and she is currently receiving specific treatment with fresh frozen plasma and Kcentra. Review of Systems Review of Systems: ROS unobtainable: Yes unobtainable due to endotracheal tube PMFSH Past Medical History Medical History Diabetes mellitus DVT (deep venous thrombosis) extensive LLE Gout Peripheral neuropathy Surgical History Surgical History (Review
[2023-11-24 13:39] LABS: INR 1.6; Prothrombin Time 20.1 Seconds (11.1-14.7)
[2023-11-24 13:56] LABS: Troponin I 0.059 ng/mL (0.000-0.034)
--- NOTE | 2023-11-24 13:56 | ADMGEN ---
This patient, Aline Gomez, was admitted to Intensive Care Unit-5. Patient/family oriented to hospital policies and general routines including ID bracelet, bed and alarms, visiting hours, pain management, procedures, bathroom and other care routines, personal items, smoking policy, room service/diet, and visiting hours. Information on how to activate the Rapid Response Team has been discussed. Patient/Family are encouraged to report perceived risks to care and to ask questions if they do not understand what they are told or what they should do.
--- NOTE | 2023-11-24 14:56 | WPDGICN ---
Assessment and Plan Assessment and plan (1) Anemia: Code(s): D64.9 - Anemia, unspecified Status: Acute Assessment and Plan: hemoglobin is 8.2 at admission and dropped further. She is now receiving 1 unit of blood. (2) Upper GI bleed: Code(s): K92.2 - Gastrointestinal hemorrhage, unspecified Status: Acute Assessment and Plan: Bleeding may not be due to a specific disease but could be secondary to coagulopathy. Nonetheless, given the history of coffee-ground emesis, EGD will be scheduled (3) Coagulopathy: Code(s): D68.9 - Coagulation defect, unspecified Status: Acute Assessment and Plan: she has been chronically on warfarin and has had a mention her INR was greater than 20 on admission. She received vitamin K, 5 mg IM and 10 mg IV has been given FFP (4) Acute respiratory failure: Code(s): J96.00 - Acute respiratory failure, unspecified whether with hypoxia or hypercapnia Status: Acute Assessment and Plan: Chest x-ray reveals: IMPRESSION: 1. Endotracheal tube tip in expected position 1.8 cm above the phillip. 2. Nasogastric tube extends through the stomach into duodenum with distal tip near the ligament of Treitz. Consider withdrawal by [address] the distal tip within the stomach. 3. Diffuse bilateral lung disease most likely moderate pulmonary edema with differential including pneumonia. Plan EGD tomorrow morning GI Consult Note Consult date/time: 11/24/23 14:56 HPI: Aline Gomez is a 78 year old female Who came to the emergency room with complaints of weakness. Her family had stated that she has been weak for the past few days. She also has been found to have an elevated INR 2 weeks ago. she is chronically on Coumadin because of a history of DVT about 10 years ago. Her dose was apparently adjusted but on admission her INR was greater than 20. Her family states that she had been vomiting and it looked mosqueda. A picture was shown to the hospitalist Of the emesis and he told me that it looks more black. There has been no evidence of lower gastrointestinal bleeding so far. Her hemoglobin on admission was 8.2 but subsequently did drop into the sevens. She is now receiving 1 unit of blood. She developed some respiratory distress and is suspected of of having alveolar hemorrhage and has been intubated. An NG tube was placed this morning and some bloody material is being produced from that. She was given vitamin K in the emergency room subcu and also some intravenously as well as FFP. Her INR has come down dramatically now to 1.6. Review of Systems Review of Systems: All systems reviewed & are unremarkable except as noted in HPI and below PMFSH Past Medical History Medical History Diabetes mellitus DVT (deep venous thrombosis) extensive LLE Gout Peripheral neuropathy Surgical History Surgical History Hx of cholecystectomy with possible appy at the same time Family History Family History Father Diabetes mellitus Social History Social History Social History: Lives alone. No hx of alcohol, tobacco or drug use. Full code. Nominates her sons to be the individuals who would make decisions for her if she is unable Smoking status: Never smoker Alcohol intake: never Substance use: never Substance use type: does not use Spiritual care concerns: No Meds Home Medications and Allergies Home Medications Medication Instructions Recorded Confirmed Type albuterol sulfate 90 mcg/actuation 2 puff inhalation QID PRN 11/24/23 11/24/23 History aerosol inhaler Shortness Of Breath Or Wheezing aspirin 81 mg tablet,delayed 81 mg PO DAILY 11/24/23 11/24/23 History release (Adult Low Dose Aspirin) atorv
[2023-11-24 16:21] LABS: Hematocrit 23.7 % (37.0-47.0); Hemoglobin 7.5 g/dL (12.0-15.0); Mean Corpuscular HGB Conc 31.6 g/dl (32-36); Mean Corpuscular Volume 88.4 fl (80-100); Platelet Count Result 226 k/mm3 (150-375); Red Blood Count 2.68 M/mm3 (4.2-5.4); Red Cell Distribution Width 13.6 % (11.5-14.5); White Blood Count 17.3 K/mm3 (4.5-10.0)
[2023-11-24 17:00] LABS: Glucose Point of Care 237 mg/dl (65-105)
[2023-11-24] MEDS: ACETAMINOPHEN 325 MG TABLET 650 MG PO (17:07)
[2023-11-24] MEDS: ACETAMINOPHEN ELIXIR 325 MG/10.15 ML UDC 650 MG PO (19:57)
[2023-11-24] MEDS: MINERAL OIL/WHITE PETROLATUM OINTMENT 1 APPLIC EACH EYE (20:05)
[2023-11-24 20:46] LABS: MRSA (PCR) NOT DETECTED (NOT DETECTE)
[2023-11-24] MEDS: NOREPINEPHRINE 8 MG/D5W 250 ML 8 MG/250 ML BAG 9.38 MG IV CONT (21:03)
[2023-11-24 22:10] LABS: Hematocrit 23.9 % (37.0-47.0); Hemoglobin 7.5 g/dL (12.0-15.0); Mean Corpuscular HGB Conc 31.4 g/dl (32-36); Mean Corpuscular Hemoglobin 27.3 pg (26-34); Mean Corpuscular Volume 86.9 fl (80-100); Mean Platelet Volume 11.4 fl (7.4-10.4); Platelet Count Result 276 k/mm3 (150-375); Red Blood Count 2.75 M/mm3 (4.2-5.4); Red Cell Distribution Width 14.2 % (11.5-14.5); White Blood Count 17.7 K/mm3 (4.5-10.0)
[2023-11-24 22:21] LABS: INR 1.3; Prothrombin Time 16.4 Seconds (11.1-14.7)
[2023-11-24 22:22] LABS: Partial Thromboplastin Time 38.8 SECONDS (22.3-36.8)
[2023-11-24 22:31] LABS: Anion Gap 9 mmol/L (8-16); Blood Urea Nitrogen 67 mg/dL (7-17); Calcium 8.1 mg/dL (8.4-10.2); Carbon Dioxide 20 mmol/L (22-30); Chloride 103 mmol/L (98-107); Estimated CRCL calculation 23 ml/min; Estimated Glomerular Filt Rate 26; Glucose 203 mg/dL (65-110); Potassium 4.2 mmol/L (3.4-5.0); Sodium 132 mmol/L (137-145)
--- NOTE | 2023-11-24 23:13 | P.PCNBED_ITS ---
Procedures Central Line Placement Right Femoral: Central Line Date: 11/24/23 Central Line Time: 22:45 Consent: I have discussed with the patient and/or surrogate, the non-emergent placement of a central venous catheter, including its clinical necessity/indication and associated potential risks and complications. The patient and/or surrogate understand(s) and acknowledge(s) the need to proceed with central venous catheter insertion as an important element of the patient's clinical management. Time Out Performed: Yes Patient Position: trendelenburg Patient placed on monitor/pulse ox: Yes Provider Prep: mask, sterile gown, sterile gloves, Max. sterile barrier precautions, cap and hand hygiene with conventional soap/water or alcohol based hand rub Central line prep: 2% Chlorhexidine scrub Sterile US Technique with sterile gel/sterile probe covers: Yes Central line lumen inserted: triple Citizen Of [place]: 7 Length (cm): 20 Depth of Insertion (cm): 19 Post Procedure: sutured in place, good blood return, all ports aspirated, flushed, capped, transparent dressing, hemostatic product, antimicrobial product, securement product and aseptic technique maintained throughout procedure Patient tolerated procedure: well and no complications
[2023-11-24 23:42] LABS: Glucose Point of Care 207 mg/dl (65-105)
[2023-11-24] MEDS: TOLNAFTATE 1% POWDER 45 GM BTL 1 APPLIC TOPICAL (23:43)
[2023-11-25] VITALS (71 sets, daily range): BP systolic 81–120; BP diastolic 41–85; PULSE 72–93; RESP 20–22; TEMP 37.2–38.7; O2SAT 91–98; BMI 28.1
--- NOTE | 2023-11-25 00:11 | PC.NURSE ---
RT making midnight rounds and noted difficulty in advancing in-line suction catheter down ETT. Patient lavaged and rescue cathed by TYPEWRITER MECHANIC Yvonne. Patient noted to have large amount of bright red blood from ETT, which was not a new finding since the beginning of the shift. Several clots also noted being suctioned with in-line suctioning. Will continue to monitor.
[2023-11-25 04:55] LABS: Carboxyhemoglobin 0.3 % THb (0-2.0); Fractional Inspired Oxygen 50 %
[2023-11-25 05:07] LABS: Oxygen Saturation ABG 97.5 % (95.0-100.0); Oxyhemoglobin 95.9 % THb (90.0-100.0)
[2023-11-25 05:09] LABS: Device VENTILATOR; Modified Allen's Test Pass; Site Drawn LEFT RADIAL
[2023-11-25 05:10] LABS: PCO2 ABG 32.5 mmHg (35.0-45.0); pH ABG 7.345 (7.350-7.450)
[2023-11-25 05:11] LABS: Alveolar/Arterial O2 Gradient 217.9 mmHg; Base Excess ABG -7.6 mEq/l (+/-2.0); HCO3 ABG 17.3 mEq/l (22.0-26.0); Total Hemoglobin 8.2 g/dL (12.0-18.0)
[2023-11-25 05:12] LABS: Methemoglobin ABG 0.4 %THb (0-1.5); Oxygen Content ABG 11.3 %vol (16.0-22.0)
[2023-11-25 05:13] LABS: PO2 FiO2 Ratio Arterial Blood 2.04 %; Reduced Hemoglobin 3.4 %THb (0-5.0)
[2023-11-25 05:14] LABS: Arterial Blood Gas PEEP 8 cmH2O; Arterial Blood Gas Tidal Volume 380 ml; Arterial Blood Gas Vent Mode CMV; Arterial Blood Gas Ventilator rate 20 /MIN
[2023-11-25 05:47] LABS: Hematocrit 22.2 % (37.0-47.0); Mean Corpuscular HGB Conc 31.5 g/dl (32-36); Mean Corpuscular Hemoglobin 27.9 pg (26-34); Mean Corpuscular Volume 88.4 fl (80-100); Mean Platelet Volume 11.1 fl (7.4-10.4); Platelet Count Result 286 k/mm3 (150-375); Red Blood Count 2.51 M/mm3 (4.2-5.4); Red Cell Distribution Width 14.3 % (11.5-14.5); White Blood Count 19.1 K/mm3 (4.5-10.0)
[2023-11-25] MEDS: CENTRAL LINE FLUSH 10 ML IV PUSH ×3 (05:47→22:07)
[2023-11-25] MEDS: INSULIN ASPART (*BKC) 100 UNITS/ML SUB-Q ×4 (05:48→23:43)
[2023-11-25 05:52] LABS: Glucose Point of Care 257 mg/dl (65-105)
[2023-11-25 05:56] LABS: INR 1.3; Prothrombin Time 16.9 Seconds (11.1-14.7)
[2023-11-25 06:00] LABS: Alanine Aminotransferase 49 U/L (6-35); Albumin Level 2.4 g/dL (3.5-5.1); Alkaline Phosphatase 100 U/L (38-126); Anion Gap 11 mmol/L (8-16); Aspartate Amino Transferase 66 U/L (14-36); Bilirubin,Total 1.7 mg/dL (0.2-1.3); Blood Urea Nitrogen 68 mg/dL (7-17); Calcium 8.1 mg/dL (8.4-10.2); Carbon Dioxide 18 mmol/L (22-30); Chloride 104 mmol/L (98-107); Estimated CRCL calculation 24 ml/min; Estimated Glomerular Filt Rate 27; Glucose 248 mg/dL (65-110); Sodium 133 mmol/L (137-145)
[2023-11-25 07:38] LABS: Glucose Point of Care 230 mg/dl (65-105)
[2023-11-25] MEDS: CEFEPIME 2 GM/NS 50 ML 2 GM/50 ML BAG IVPB (07:50)
[2023-11-25] MEDS: TOLNAFTATE 1% POWDER 45 GM BTL 1 APPLIC TOPICAL ×2 (07:51→20:29)
[2023-11-25] MEDS: MINERAL OIL/WHITE PETROLATUM OINTMENT 1 APPLIC EACH EYE ×2 (07:51→20:29)
[2023-11-25] MEDS: PANTOPRAZOLE SODIUM IV 40 MG VIAL IV PUSH ×2 (07:51→20:28)
[2023-11-25] MEDS: SODIUM CHLORIDE 0.9% IV 250 ML 30 ML IV CONT (08:34)
[2023-11-25] MEDS: VANCOMYCIN 1,250 MG/NS 250 ML 1,250 MG/250 ML BAG 166.67 MG IVPB (09:38)
[2023-11-25 11:47] LABS: Glucose Point of Care 269 mg/dl (65-105)
--- NOTE | 2023-11-25 11:51 | PCDIET ---
Tube feeding recommendations: Vital AF 1.2 at 20 ml/hr advance by 10 ml q 4 hours to goal rate of 55 ml/hr at this time. Flush 30 ml q 4 hours. Tube feedings at 55 ml/hr providing 1452 kcals/91 gms protein/981 ml water. Meeting 70% kcal needs and 99% protein needs. RD will continue to monitor to obtain 100% kcal needs. Monitoring daily.
[2023-11-25] MEDS: ACETAMINOPHEN ELIXIR 325 MG/10.15 ML UDC 650 MG PO (12:04)
--- NOTE | 2023-11-25 12:06 | WPDINTPN ---
Progress Note: A&P Assessment and Plan (1) Acute respiratory failure: Code(s): J96.00 - Acute respiratory failure, unspecified whether with hypoxia or hypercapnia Status: Acute Assessment and Plan: 11/24: On arrival to ICU patient was hypoxic on 10 L nasal cannula. She was in mild respiratory distress and tachypneic. Using accessory muscles and abdominal breathing. Patient also has hemoptysis and upper GI bleed hence not a candidate for NIPPV -Dr Moore discussed option of intubation and mechanical ventilation secure airway and elevated respiratory distress with the patient and her son the both were agreeable after understanding the risk and benefit. -11/24: Patient intubated in ICU -chest x-ray this morning: Diffuse lung disease with mild improvement, consistent with pulmonary edema versus pneumonia. -ABGs reviewed, will wean FiO2 to maintain O2 sats > 92% -PCR for influenza RSV and COVID negative -CT scan of the chest shows diffuse lung disease likely pulmonary edema versus alveolar hemorrhage -coagulopathy was reversed with Kcentra, 1 unit of FFP, vitamin K -appreciate pulmonology evaluation and recommendation -will discuss with pulmonology regarding bronchoscopy -continue vancomycin and cefepime (11/24) -add bronchodilator (2) Elevated troponin: Code(s): R79.89 - Other specified abnormal findings of blood chemistry Status: Acute Assessment and Plan: Likely secondary to bleeding, respiratory failure, shock, sepsis -Not a candidate for anticoagulation or antiplatelet agent at this time. -cardiomyopathy could be related to ischemic heart disease -consult cardiology 11/24/2023 echocardiogram Summary ? 1. Complete two-dimensional, color flow and Doppler transthoracic echocardiogram is performed. ? 2. Mild LV enlargement with systolic dysfunction ejection fraction approximately 35%. ? 3. Paradoxical septal motion due to bundle branch block. ? 4. Mild aortic valve stenosis valve area 1.2 cm2. ? 5. Trivial AI. (3) Coagulopathy: Code(s): D68.9 - Coagulation defect, unspecified Status: Acute Assessment and Plan: Patient has been on warfarin for many years and her last INR check was at the end of October 2023, and INR was a over 3. -had DVT in her left leg more than 10 years ago which led to initiation of warfarin. On arrival her INR was > 20 -Patient was given vitamin K and FFP -Patient clearly has active GI bleed and hemoptysis which could be secondary to alveolar hemorrhage. She has been deteriorating with worsening hypoxia and respiratory distress and now requiring intubation and mechanical ventilation. She would probably not tolerate additional volume with FFP administration she will also be needing PRBC - Dr. Moore discussed with patient and her son regarding benefits and risks of Kcentra to reverse her coagulopathy. Explained the risk of blood clot formation to both patient and her son and they both verbalized understanding and agreed to proceed. In current situation the benefits outweigh the risks. 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 Otherwise patent bilateral lower extremity veins. No evidence of acute deep venous thrombosis. -will consult surgery for possible IVC filter placement -INR this morning is 1.3 Hold aspirin warfarin (4) Anemia: Code(s): D64.9 - Anemia, unspecified Status: Acute Assessment and Plan: 11/24: Hemoglobin 7.8. Black OG tube suction, in light of active bleeding patient was transfused 1 unit of PRBC 11/25: Hemoglobin dropped to 7.0, will transfuse additional 1 unit of packed RBCs Monitor serial hemoglobin levels Transfuse additional blood products as needed -GI following (5) Hemoptysis: Code(s): R04.2 - Hemoptysis Status: Acute Assessment and Plan: Patient reported hemoptysis on the floor -Secondary
[2023-11-25 13:28] LABS: Creatinine Urine 217.4 mg/dL
[2023-11-25 13:30] LABS: Potassium Urine Random 45.4 meq/L; Sodium Urine Random 8 meq/L
--- NOTE | 2023-11-25 13:44 | PM.CNCAR ---
Assessment and Plan Assessment and plan (1) Cardiomyopathy: Code(s): I42.9 - Cardiomyopathy, unspecified Status: Acute Assessment and Plan: EF 35%. This is a new diagnosis. Unable to initiate standard guideline directed medical therapy as she is on pressor support. Will follow along and initiate GDMT when appropriate Ischemic evaluation eventually - not a candidate now because of anemia, hemoptysis with no source identified. (2) Congestive heart failure: Code(s): I50.9 - Heart failure, unspecified Status: Acute History of Present Illness History of Present Illness Consult date/time: 11/25/23 13:44 Requesting physician: Stephanie Hoffman MD Consult reason: Other (Cardiomyopathy) Reason For Visit: Sepsis/Leukocytosis/Renal Insufficiency/Hypomagnes Narrative: Aline Gomez is a 78 year old female with diabetes who has been chronically anticoagulated with warfarin for a DVT she had more than 10 years ago. She was brought to the hospital by her son because of weakness. cardiology is being asked to see her because of cardiomyopathy. Unable to obtain any history from the patient as she is intubated sedated currently. However, patient's son is at the bedside and provided history. He denies any history of congestive heart failure, coronary artery disease, or arrhythmias. She had not been experiencing any edema or shortness of breath that he is aware of. She did have a UTI recently and was placed on antibiotics at an urgent care. Aside from that, she had been in her normal state of health until recently. Review of Systems Review of Systems: ROS unobtainable: Yes unobtainable due to endotracheal tube and unobtainable due to medical condition PMFSH Past Medical History Medical History (Updated 11/27/23 @ 17:53 by Jayden Johnson MD) Diabetes mellitus DVT (deep venous thrombosis) extensive LLE Gout Peripheral neuropathy Surgical History Surgical History (Updated 11/27/23 @ 17:53 by Jayden Johnson MD) Hx of cholecystectomy with possible appy at the same time Family History Family History Father Diabetes mellitus Social History Social History Social History: Lives alone. No hx of alcohol, tobacco or drug use. Full code. Nominates her sons to be the individuals who would make decisions for her if she is unable Smoking status: Never smoker Alcohol intake: never Substance use: never Substance use type: does not use Spiritual care concerns: No Meds Home Medications and Allergies Home Medications Medication Instructions Recorded Confirmed Type albuterol sulfate 90 mcg/actuation 2 puff inhalation QID PRN 11/24/23 11/24/23 History aerosol inhaler Shortness Of Breath Or Wheezing aspirin 81 mg tablet,delayed 81 mg PO DAILY 11/24/23 11/24/23 History release (Adult Low Dose Aspirin) atorvastatin 40 mg tablet 40 mg PO HS 11/24/23 11/24/23 History nejabhk-[id number]-shfd 333 mg-133 1 tablet PO DAILY 11/24/23 11/24/23 History mg-5 mg tablet febuxostat 40 mg tablet 40 mg PO DAILY 11/24/23 11/24/23 History glipizide 10 mg tablet 10 mg PO BID 11/24/23 11/24/23 History hydrochlorothiazide 25 mg tablet 25 mg PO DAILY 11/24/23 11/24/23 History losartan 100 mg tablet 100 mg PO DAILY 11/24/23 11/24/23 History metformin 500 mg tablet 1,000 mg PO BID 11/24/23 11/24/23 History multivitamin 1 tablet PO DAILY 11/24/23 11/24/23 History potassium chloride 20 mEq 10 meq PO DAILY 11/24/23 11/24/23 History tablet,extended release(part/cryst) (Klor-Con M) sitagliptin phosphate 100 mg 100 mg PO DAILY 11/24/23 11/24/23 History tablet (Januvia) warfarin 3 mg tablet 6 mg PO QTUTHSASU 11/24/23 11/24/23 History warfarin 4 mg tablet 4 mg PO QMWF 11/24/23 11/24/23 History Allergies Allergy/AdvReac Type Severity Reaction Status Date / Time No Known Allergies Aller
[2023-11-25] MEDS: NOREPINEPHRINE 8 MG/D5W 250 ML 8 MG/250 ML BAG 13.13 MG IV CONT (14:25)
[2023-11-25 14:37] LABS: Hematocrit 26.1 % (37.0-47.0); Hemoglobin 8.4 g/dL (12.0-15.0); Mean Corpuscular HGB Conc 32.2 g/dl (32-36); Mean Platelet Volume 10.9 fl (7.4-10.4); Platelet Count Result 268 k/mm3 (150-375); Red Cell Distribution Width 14.6 % (11.5-14.5)
--- NOTE | 2023-11-25 14:41 | PM.PNPUL ---
Progress Note: A&P Assessment and Plan (1) Acute respiratory failure: Code(s): J96.00 - Acute respiratory failure, unspecified whether with hypoxia or hypercapnia Status: Acute (2) Diffuse pulmonary alveolar hemorrhage: Code(s): R04.89 - Hemorrhage from other sites in respiratory passages Status: Acute Assessment and Plan: A 78-year-old female patient, with a medical background of Diabetes Mellitus and past Deep Vein Thrombosis (DVT) instances, came in with generalized weakness, nausea, vomiting, and a day's history of recurring hemoptysis, accompanied by a significantly prolonged Prothrombin Time and INR. She was intubated in the intensive care unit due to hypoxic respiratory failure. Bloody tracheal secretions have been observed since her admission to the ICU. Her clinical history, in conjunction with chest CT findings of diffuse alveolar infiltrates, implies a diffuse alveolar hemorrhage associated with coagulopathy. Her coagulopathy has been counteracted using Kcentra, vitamin K, and fresh frozen plasma. Her gas exchange has shown improvement in the last 24 hours. Partial clearing of bilateral pulmonary infiltrates was also noted in the chest X-ray. The possibility of a lower respiratory tract infection, which may not be detectable on chest imaging studies due to the diffuse alveolar infiltrates, exists. The sputum culture revealed some Gram-positive cocci, and she has been administered vancomycin, currently on cefepime. It's presumed that vancomycin was halted due to increased creatinine levels. The patient still has bloody tracheal secretions, though less than before. I would advise maintaining the current management strategy, including frequent suctioning, for now. A MRSA screen has been ordered. No procedures are required at this moment as her history and diagnostic tests suggest a diffuse alveolar hemorrhage related to coagulopathy. I will continue to follow up on the patient's progress with you. (3) Coagulopathy: Code(s): D68.9 - Coagulation defect, unspecified Status: Acute (4) Anemia: Code(s): D64.9 - Anemia, unspecified Status: Acute (5) Hemoptysis: Code(s): R04.2 - Hemoptysis Status: Acute (6) Diabetes mellitus: Code(s): E11.9 - Type 2 diabetes mellitus without complications Status: Acute (7) Leukocytosis: Code(s): D72.829 - Elevated white blood cell count, unspecified Status: Acute Subjective Date/time seen: 11/25/23 14:41 Interval history: Patient remains in the intensive care unit, fully sedated on mechanical ventilation. Has been started on IV vasopressor medication. Gas exchange improved overnight with FiO2 being now down to 50% from 100% last night. She continues to have bloody tracheal secretions but less than before. She has been transfused for low hemoglobin. Remains on antibiotics. Chest x-ray showed partial clearing especially in the right lower lobe. Review of Systems Review of Systems: ROS unobtainable: Yes unobtainable due to endotracheal tube and unobtainable due to medical condition Exam Narrative: GENERAL APPEARANCE: Well developed, well nourished, fully sedated and intubated in the intensive care unit SKIN: Inspection of the skin reveals no rashes, ulcerations or petechiae. HEENT: Sclerae anicteric and conjunctivae pink and moist. NECK: Supple. There was no thyroid enlargement, and no tenderness, or masses were felt. LUNGS: Auscultation of the lungs revealed clear breath sounds anteriorly no wheezing CARDIAC: There was a regular rate and rhythm without any murmurs, gallops, rubs. ABDOMEN: Soft and nontender with normal bowel sounds. There was no organomegaly. LYMPH NODES: No lymphadenopathy was appreciated in the neck. EXTREMITIES: No cyanosis, clubbing or edema. Chronic stasis dermatitis changes in lower extremities NEUROLOGIC: Fully sedated on mechanical ventilation Objective Data Vital Signs Vital
[2023-11-25] MEDS: IPRATROPIUM 0.5 MG/ALBUTEROL SULFATE 2.5 MG AMPUL.NEB 3 ML INHALATION ×2 (14:56→20:11)
--- NOTE | 2023-11-25 16:40 | PM.CNGS ---
Assessment and Plan Assessment and plan (1) Coagulopathy: Code(s): D68.9 - Coagulation defect, unspecified Status: Acute Assessment and Plan: INR has been reversed, continue blood products as needed, given DVT will need filter once stable (2) Diffuse pulmonary alveolar hemorrhage: Code(s): R04.89 - Hemorrhage from other sites in respiratory passages Status: Acute Assessment and Plan: INR reversed, continue management per banking services officer and Pulmonary team (3) Upper GI bleed: Code(s): K92.2 - Gastrointestinal hemorrhage, unspecified Status: Acute Assessment and Plan: EGD reviewed, Protonix b.i.d. (4) Supratherapeutic INR: Code(s): R79.1 - Abnormal coagulation profile Status: Acute Assessment and Plan: reversed History of Present Illness Consult details Consult date: 11/25/23 Reason for consult: other (IVC filter) Requesting physician: Memo Moore MD Narrative: The patient is a 78-year-old female with multiple medical issues now intubated in the ICU with hypovolemic shock, acute respiratory failure. The patient presented with alveolar hemorrhage and super therapeutic INR. The patient was also noted to have an upper GI bleed. The patient had acute respiratory failure and required intubation and has now been admitted to the ICU. All history is obtained via chart. The patient has had her anticoagulation reversed and also has received multiple units of blood products. The patient was on warfarin for DVT in the past. Recent ultrasound did show further DVT. Surgery now consulted for IVC filter placement. Review of Systems Review of Systems: ROS unobtainable: Yes unobtainable due to medical condition PMFSH Past Medical History Medical History (Updated 11/25/23 @ 16:45 by Acacia Rey MD) Diabetes mellitus DVT (deep venous thrombosis) extensive LLE Gout Peripheral neuropathy Surgical History Surgical History Hx of cholecystectomy with possible appy at the same time Family History Family History Father Diabetes mellitus Social History Social History Social History: Lives alone. No hx of alcohol, tobacco or drug use. Full code. Nominates her sons to be the individuals who would make decisions for her if she is unable Smoking status: Never smoker Alcohol intake: never Substance use: never Substance use type: does not use Spiritual care concerns: No Meds Home Medications and Allergies Home Medications Medication Instructions Recorded Confirmed Type albuterol sulfate 90 mcg/actuation 2 puff inhalation QID PRN 11/24/23 11/24/23 History aerosol inhaler Shortness Of Breath Or Wheezing aspirin 81 mg tablet,delayed 81 mg PO DAILY 11/24/23 11/24/23 History release (Adult Low Dose Aspirin) atorvastatin 40 mg tablet 40 mg PO HS 11/24/23 11/24/23 History llqpnhf-gggvufshi-nrvl 333 mg-133 1 tablet PO DAILY 11/24/23 11/24/23 History mg-5 mg tablet febuxostat 40 mg tablet 40 mg PO DAILY 11/24/23 11/24/23 History glipizide 10 mg tablet 10 mg PO BID 11/24/23 11/24/23 History hydrochlorothiazide 25 mg tablet 25 mg PO DAILY 11/24/23 11/24/23 History losartan 100 mg tablet 100 mg PO DAILY 11/24/23 11/24/23 History metformin 500 mg tablet 1,000 mg PO BID 11/24/23 11/24/23 History multivitamin 1 tablet PO DAILY 11/24/23 11/24/23 History potassium chloride 20 mEq 10 meq PO DAILY 11/24/23 11/24/23 History tablet,extended release(part/cryst) (Klor-Con M) sitagliptin phosphate 100 mg 100 mg PO DAILY 11/24/23 11/24/23 History tablet (Januvia) warfarin 3 mg tablet 6 mg PO QTUTHSASU 11/24/23 11/24/23 History warfarin 4 mg tablet 4 mg PO QMWF 11/24/23 11/24/23 History Allergies Allergy/AdvReac Type Severity Reaction Status Date / Time No Known Allergies
[2023-11-25 16:46] LABS: Glucose Point of Care 282 mg/dl (65-105)
--- NOTE | 2023-11-25 17:49 | PM.IMPN ---
Progress Note: A&P Assessment and Plan (1) Acute respiratory failure: Code(s): J96.00 - Acute respiratory failure, unspecified whether with hypoxia or hypercapnia Status: Acute Assessment and Plan: Patient presented with tachypnea and hypoxia. ABG showing 7.45/29/61 on 4L. Influenza, RSV and COVID PCR negative CT chest showing diffuse disease possibly pulmonary edema but appears clinically more dehydrated. Having hemoptysis and concern for pulmonary hemorrhage Patient's condition worsened requiring intubation yesterday Pulmonary consulted and appreciate their input. Continue bronchodilators Vent management per knurling machine operator. (2) Shock: Code(s): R57.9 - Shock, unspecified Status: Acute Assessment and Plan: Patient developed HoTN yesterday requiring Levophed. Suspect from hypovolemia vs sepsis. Consider cardiogenic given the elevated Trop and low EF. BP stable with Levophed. Recieved 2U PRBC today. INR reversed. Wean levophed to keep MAP >65 (3) Hemoptysis: Code(s): R04.2 - Hemoptysis Status: Acute Assessment and Plan: Patient developed hemoptysis. Related to the severely elevated coagulation panel. INR>20, PT>120 and PTT 96. [place] related to continued Warfarin use, recently elevated INR, cipro, lack of oral intake, sepsis Vit K 10mg IV once and FFP x 1 unit. Radio Division Captain gave Kcentra as well. Repeat INR was 1.6. 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 This is the leg the patient had her old DVT so suspect this is truly chronic. IVC filter being considered. As above (5) Sepsis: Code(s): A41.9 - Sepsis, unspecified organism Status: Acute Assessment and Plan: Patient presents with weakness and found to have sepsis with leukocytosis, tachypnea, lactic acidosis, PABLO and coagulopathy. Etiology unclear. CXR clear. CT chest showing diffuse lung disease felt more likely pulm hemorrhage. COVID/RSV/Influenza PCR negative. UA not consistent with UTI BCx collected Sputum Cx pending Urine Cr pending WBC climbing. Consider partially treated infection since was on Cipro on admission. Consider liver abscess as well but felt less likely Continue IV abx. Follow up on culture results. (6) Liver mass: Code(s): R16.0 - Hepatomegaly, not elsewhere classified Status: Acute Assessment and Plan: CT scan shows a incidental finding of a 10 cm liver mass. This could be focal steatosis, malignancy or hemangioma. Will need further workup once more stable. (7) Hypomagnesemia: Code(s): E83.42 - Hypomagnesemia Status: Acute Assessment and Plan: Magnesium low on admission at 1.4. This was replaced. Continue to follow and replace as needed. (8) Renal insufficiency: Code(s): N28.9 - Disorder of kidney and ureter, unspecified Status: Acute Assessment and Plan: Patient does not have a history of renal disease. No old labs to compare. BUN elevation could be related to either occult GI bleeding. Creatinine was 2.0. Suspect related to dehydration given the nausea and vomiting and that she is on HCTZ. CT scan showing normal kidneys without evidence of stones, hydronephrosis or obstruction. Repeat Cr trending down. Will follow renal function, elecatorlytes and UOP. (9) Elevated troponin: Code(s): R79.89 - Other specified abnormal findings of blood chemistry Status: Acute Assessment and Plan: Troponin elevated at 0.087. EKG shows normal sinus rhythm with left axis deviation and left bundle branch block. Unclear if the bundle branch block is new or old. Echo showing EF 35-40% with Grade I diastolic dysfunction. Elevated trop
[2023-11-25 22:16] LABS: Hematocrit 24.9 % (37.0-47.0); Hemoglobin 8.1 g/dL (12.0-15.0); Mean Corpuscular HGB Conc 32.5 g/dl (32-36); Mean Corpuscular Hemoglobin 28.2 pg (26-34); Mean Corpuscular Volume 86.8 fl (80-100); Mean Platelet Volume 11.1 fl (7.4-10.4); Platelet Count Result 251 k/mm3 (150-375); Red Blood Count 2.87 M/mm3 (4.2-5.4); Red Cell Distribution Width 14.6 % (11.5-14.5); White Blood Count 20.4 K/mm3 (4.5-10.0)
[2023-11-25 23:22] LABS: Eosinophil Urine None Seen % (None Seen); Urine Eos QC 2nd Tech Confirmed
[2023-11-25 23:43] LABS: Glucose Point of Care 294 mg/dl (65-105)
[2023-11-26] VITALS (54 sets, daily range): BP systolic 97–154; BP diastolic 20–99; PULSE 72–175; RESP 17–35; TEMP 36.9–38.4; O2SAT 90–100
[2023-11-26] MEDS: IPRATROPIUM 0.5 MG/ALBUTEROL SULFATE 2.5 MG AMPUL.NEB 3 ML INHALATION ×4 (01:59→20:30)
[2023-11-26] MEDS: CENTRAL LINE FLUSH 10 ML IV PUSH ×3 (05:25→22:12)
[2023-11-26 05:33] LABS: Hematocrit 25.7 % (37.0-47.0); Hemoglobin 8.2 g/dL (12.0-15.0); Mean Corpuscular HGB Conc 31.9 g/dl (32-36); Mean Corpuscular Hemoglobin 28.1 pg (26-34); Mean Platelet Volume 11.1 fl (7.4-10.4); Platelet Count Result 246 k/mm3 (150-375); Red Blood Count 2.92 M/mm3 (4.2-5.4); Red Cell Distribution Width 14.7 % (11.5-14.5); White Blood Count 19.8 K/mm3 (4.5-10.0)
[2023-11-26 05:36] LABS: Base Excess ABG -8.3 mEq/l (+/-2.0); Carboxyhemoglobin 0.3 % THb (0-2.0); Fractional Inspired Oxygen 50 %; HCO3 ABG 16.5 mEq/l (22.0-26.0); Methemoglobin ABG 0.3 %THb (0-1.5); Oxygen Content ABG 12.8 %vol (16.0-22.0); Oxygen Saturation ABG 93.1 % (95.0-100.0); Oxyhemoglobin 92.1 % THb (90.0-100.0); PO2 ABG 68.6 mmHg (80.0-100.0); PO2 FiO2 Ratio Arterial Blood 1.37 %; Reduced Hemoglobin 7.3 %THb (0-5.0); Total Hemoglobin 9.8 g/dL (12.0-18.0); pH ABG 7.343 (7.350-7.450)
[2023-11-26 05:38] LABS: Device VENTILATOR; Modified Allen's Test Pass; Site Drawn RIGHT RADIAL
[2023-11-26 05:39] LABS: Arterial Blood Gas PEEP 8 cmH2O; Arterial Blood Gas Tidal Volume 380 ml; Arterial Blood Gas Vent Mode CMV; Arterial Blood Gas Ventilator rate 20 /MIN
[2023-11-26 05:43] LABS: INR 1.8; Prothrombin Time 21.8 Seconds (11.1-14.7)
[2023-11-26 05:44] LABS: Partial Thromboplastin Time 39.8 SECONDS (22.3-36.8)
[2023-11-26 05:51] LABS: Lactic Acid Reflex 1.8 mmol/L (0.7-2.0)
[2023-11-26 05:54] LABS: Vancomycin Trough 12.2 ug/mL (10.0-20.0)
[2023-11-26 05:58] LABS: Alanine Aminotransferase 49 U/L (6-35); Albumin Level 2.5 g/dL (3.5-5.1); Alkaline Phosphatase 118 U/L (38-126); Anion Gap 12 mmol/L (8-16); Aspartate Amino Transferase 65 U/L (14-36); Bilirubin,Total 1.7 mg/dL (0.2-1.3); Blood Urea Nitrogen 72 mg/dL (7-17); Calcium 8.3 mg/dL (8.4-10.2); Carbon Dioxide 17 mmol/L (22-30); Chloride 105 mmol/L (98-107); Estimated CRCL calculation 23 ml/min; Estimated Glomerular Filt Rate 26; Glucose 309 mg/dL (65-110); Magnesium 2.1 mg/dL (1.6-2.3); Phosphorus 2.8 mg/dL (2.5-4.5); Sodium 134 mmol/L (137-145)
[2023-11-26] MEDS: INSULIN ASPART (*BKC) 100 UNITS/ML SUB-Q ×3 (06:14→23:12)
[2023-11-26 06:22] LABS: Glucose Point of Care 285 mg/dl (65-105)
[2023-11-26] MEDS: VANCOMYCIN 1,250 MG/NS 250 ML 1,250 MG/250 ML BAG 166.67 MG IVPB (06:29)
[2023-11-26 07:43] LABS: Glucose Point of Care 306 mg/dl (65-105)
[2023-11-26] MEDS: INSULIN GLARGINE (*BKC) 100 UNITS/ML 12 UNITS SUB-Q (08:06)
[2023-11-26] MEDS: MINERAL OIL/WHITE PETROLATUM OINTMENT 1 APPLIC EACH EYE ×2 (08:06→20:20)
[2023-11-26] MEDS: PANTOPRAZOLE SODIUM IV 40 MG VIAL IV PUSH ×2 (08:06→20:20)
[2023-11-26] MEDS: TOLNAFTATE 1% POWDER 45 GM BTL 1 APPLIC TOPICAL ×2 (08:06→20:20)
[2023-11-26] MEDS: CEFEPIME 2 GM/NS 50 ML 2 GM/50 ML BAG IVPB (08:16)
--- NOTE | 2023-11-26 09:46 | PM.PNPUL ---
Progress Note: A&P Assessment and Plan (1) Acute respiratory failure: Code(s): J96.00 - Acute respiratory failure, unspecified whether with hypoxia or hypercapnia Status: Acute (2) Diffuse pulmonary alveolar hemorrhage: Code(s): R04.89 - Hemorrhage from other sites in respiratory passages Status: Acute Assessment and Plan: A 78-year-old female patient with a medical history of Diabetes Mellitus and previous Deep Vein Thrombosis episodes presented with symptoms of generalized weakness, nausea, vomiting, and a day of repeated hemoptysis. She also exhibited a significantly prolonged Prothrombin Time and INR. Due to hypoxic respiratory failure, she was intubated in the intensive care unit, where bloody tracheal secretions have been noted since her admission. Her clinical history and chest CT findings of diffuse alveolar infiltrates suggest a diffuse alveolar hemorrhage linked to coagulopathy. Her coagulopathy was managed with Kcentra, vitamin K, and fresh frozen plasma. Her gas exchange improved in the first 24 hours but not in the last day. With effective treatment and cessation of bleeding, significant clearing of bilateral alveolar infiltrates was observed on the x-ray. However, she continues to exhibit leukocytosis and requires vasopressor support due to hemodynamic instability. She is currently on two antibiotics. A rebound of INR was noted in today's tests. Her respiratory status appears to be improving as expected with coagulopathy treatment. Today's chest x-ray showed significant clearing. The patient continues to require a high FiO2, which might be partly due to previous blood clots in the major airways. In this case, bronchoalveolar lavage (BAL) is typically not indicated as the blood in the alveoli is gradually cleared by macrophages and other mechanisms. The clearing of opacities on the x-ray aligns with the typical evolution of extensive alveolar hemorrhage. Will consider repeat chest CT in a.m. if there is no further respiratory status improvement over the next 24 hours. I would suggest frequent suctioning to clear all blood clots from the major airways. Given her negative MRSA screening, vancomycin may not be necessary for a possible lower respiratory infection. The source of the leukocytosis and hemodynamic instability, as well as the rebound in INR, are unclear. I will continue to monitor these factors closely. (3) Coagulopathy: Code(s): D68.9 - Coagulation defect, unspecified Status: Acute (4) Anemia: Code(s): D64.9 - Anemia, unspecified Status: Acute (5) Hemoptysis: Code(s): R04.2 - Hemoptysis Status: Acute (6) Diabetes mellitus: Code(s): E11.9 - Type 2 diabetes mellitus without complications Status: Acute (7) Leukocytosis: Code(s): D72.829 - Elevated white blood cell count, unspecified Status: Acute Subjective Date/time seen: 11/26/23 09:46 Interval history: Patient remains in the intensive care unit, fully sedated on mechanical ventilation. She remains on IV vasopressor medication and IV antibiotics. Tracheal suctioning removing all blood clots but no evidence of active bleeding. Further clearing of alveolar infiltrates noted on today's chest x-ray. She remains on same FiO2 over the last 24 hours. MRSA screen negative. S Review of Systems Review of Systems: ROS unobtainable: Yes unobtainable due to endotracheal tube and unobtainable due to medical condition Exam Narrative: GENERAL APPEARANCE: Well developed, well nourished, fully sedated and intubated in the intensive care unit SKIN: Inspection of the skin reveals no rashes, ulcerations or petechiae. HEENT: Sclerae anicteric and conjunctivae pink and moist. NECK: Supple. There was no thyroid enlargement, and no tenderness, or masses were felt. LUNGS: Auscultation of the lungs revealed clear breath sounds anteriorly no wheezing CARDIAC: There was a regular rate and rhyth
--- NOTE | 2023-11-26 11:33 | PCFNICU ---
ICU Rounding Note: Pt current nutrition is NPO. Nutrition recommendation:Vital AF 1.2 goal rate at 55 ml/hr Last recorded weight is 77.8 kg, up from 76.8 kg on admit. Bowel Motility:No BM reported. Labs Reviewed:Glu 308, Cr 1.9,GFR 26, Na 134,Alb 2.5 Meds Noted:Lantus, Protonix, Vancomycin, Levophed. Skin: WNL Additional Notes: Patient remains on mechanical vent. No sedation. Tube feedings plan to start today of Vital AF 1.2 at 20 ml/hr advance by 10 ml q 4 hours to goal rate of 55 ml/hr. Tube feedings at goal rate providing 1452 kcals/91 gms protein/981 ml water. Flush 30 ml q 4 hours. Agree with diet orders at this time. Following daily in ICU rounds. Will monitor weight, labs, skin, tube feeding tolerance, meds every Friday and Friday.
[2023-11-26 12:07] LABS: Glucose Point of Care 309 mg/dl (65-105)
--- NOTE | 2023-11-26 12:47 | PM.PNGS ---
Progress Note: A&P Assessment and Plan (1) DVT (deep venous thrombosis): Code(s): I82.409 - Acute embolism and thrombosis of unspecified deep veins of unspecified lower extremity Status: Acute Assessment and Plan: will setup for IVC filter tomorrow if stable (2) Shock: Code(s): R57.9 - Shock, unspecified Status: Acute Assessment and Plan: Continue current management per motor vehicle technician team (3) Acute respiratory failure: Code(s): J96.00 - Acute respiratory failure, unspecified whether with hypoxia or hypercapnia Status: Acute Assessment and Plan: intubated, sedated, continue management to per motor vehicle technician team Subjective Subjective Date/Time Seen: 11/26/23 12:47 Interval history: cont to be critically ill in the ICU ventilated and sedated Review of Systems Review of Systems: ROS unobtainable: Yes unobtainable due to medical condition Exam Const: General: ill appearing Resp: Auscultation: diminished lung sounds Cardio: Rate: tachycardic Rhythm: regular rhythm GI: Inspection: normal to inspection Extrem: Other: R femoral vein TLC C/D/I Objective Data Vital Signs Vital Signs: Vital Signs - 24 hr 11/25/23 13:15 11/25/23 13:00 11/25/23 13:05 Temperature 38.5 C H 38.4 C H 37.9 C H Pulse Rate 86 93 Respiratory Rate 21 H 22 H Blood Pressure 90/47 L 81/48 L Pulse Oximetry 97 91 Oxygen Delivery Mechanical Ventilation Mechanical Ventilation Fraction of Inspired Oxygen 11/25/23 13:10 11/25/23 14:00 11/25/23 14:00 Temperature 38.4 C H 38.4 C H Pulse Rate 86 92 92 Respiratory Rate 21 H 20 Blood Pressure 92/44 L 103/53 L Pulse Oximetry 94 95 Oxygen Delivery Mechanical Ventilation Fraction of Inspired Oxygen 11/25/23 14:25 11/25/23 14:58 11/25/23 15:12 Temperature Pulse Rate 92 92 91 Respiratory Rate 20 Blood Pressure 103/53 L Pulse Oximetry 97 Oxygen Delivery Mechanical Ventilation Fraction of Inspired Oxygen 50 11/25/23 15:18 11/25/23 16:00 11/25/23 16:00 Temperature Pulse Rate 90 93 Respiratory Rate 20 Blood Pressure Pulse Oximetry Oxygen Delivery Fraction of Inspired Oxygen 50 11/25/23 16:00 11/25/23 16:35 11/25/23 16:36 Temperature 38.2 C H Pulse Rate 93 90 92 Respiratory Rate 20 20 Blood Pressure 89/41 L 90/48 L Pulse Oximetry 98 Oxygen Delivery Fraction of Inspired Oxygen 11/25/23 16:37 11/25/23 17:43 11/25/23 18:00 Temperature 37.7 C H Pulse Rate 90 85 78 Respiratory Rate 20 20 Blood Pressure 85/47 L Pulse Oximetry 94 95 Oxygen Delivery Mechanical Ventilation Fraction of Inspired Oxygen 50 11/25/23 18:06 11/25/23 18:08 11/25/23 18:08 Temperature Pulse Rate 78 78 78 Respiratory Rate 20 20 Blood Pressure 85/47 L Pulse Oximetry Oxygen Delivery Fraction of Inspired Oxygen 11/25/23 18:00 11/25/23 20:11 11/25/23 20:11 Temperature Pulse Rate 78 75 75 Respiratory Rate 20 Blood Pressure Pulse Oximetry 95 Oxygen Delivery Mechanical Ventilation Fraction of Inspired Oxygen 50 11/25/23 20:00 11/25/23 20:00 11/25/23 20:00 Temperature 37.3 C Pulse Rate 73 75 Respiratory Rate 21 H 20 Blood Pressure 107/53 L Pulse Oximetry 95 95 Oxygen Delivery Mechanical Ventilation Fraction of Inspired Oxygen 50 50 11/25/23 20:27 11/25/23 20:28 11/25/23 20:28 Temperature Pulse Rate 76 75 76 Respiratory Rate 20 20 Blood Pressure 106/52 L Pulse Oximetry Oxygen Delivery Fraction of Inspired Oxygen 11/25/23 20:51 11/25/23 21:10 11/25/23 21:00 Temperature 37.3 C Pulse Rate 76 77 76 Respiratory Rate 20 Blood Pressure 88/47 L 116/54 L 116/54 L Pulse Oximetry 95 Oxygen Delivery Fraction of Inspired Oxygen 11/25/23 20:00 11/25/23 22:00 11/25/23 22:00 Temperature 37.3 C Pulse Rate 73 76 76 Respiratory Rate 20 Blood Pressure 108/53 L Pulse O
[2023-11-26] MEDS: ACETAMINOPHEN ELIXIR 325 MG/10.15 ML UDC 650 MG PO ×2 (14:04→20:19)
--- NOTE | 2023-11-26 14:04 | WPDINTPN ---
Progress Note: A&P Assessment and Plan (1) Acute respiratory failure: Code(s): J96.00 - Acute respiratory failure, unspecified whether with hypoxia or hypercapnia Status: Acute Assessment and Plan: 11/24: On arrival to ICU patient was hypoxic on 10 L nasal cannula. She was in mild respiratory distress and tachypneic. Using accessory muscles and abdominal breathing. Patient also has hemoptysis and upper GI bleed hence not a candidate for NIPPV -Dr Moore discussed option of intubation and mechanical ventilation secure airway and elevated respiratory distress with the patient and her son the both were agreeable after understanding the risk and benefit. -11/24: Patient intubated in ICU -chest x-ray this morning: Probable minimal diffuse pulmonary groundglass disease. Correlate for pulmonary edema or atypical infection -ABGs reviewed, will wean FiO2 to maintain O2 sats > 92% -PCR for influenza RSV and COVID negative -CT scan of the chest shows diffuse lung disease likely pulmonary edema versus alveolar hemorrhage -coagulopathy was reversed with Kcentra, 1 unit of FFP, vitamin K -appreciate pulmonology evaluation and recommendation, continue current care -blood clots have been removed by respiratory therapist from the ETT and airway -continue vancomycin and cefepime (11/24) -continue bronchodilator (2) Elevated troponin: Code(s): R79.89 - Other specified abnormal findings of blood chemistry Status: Acute Assessment and Plan: Likely secondary to bleeding, respiratory failure, shock, sepsis -Not a candidate for anticoagulation or antiplatelet agent at this time. -cardiomyopathy could be related to ischemic heart disease -consult cardiology 11/24/2023 echocardiogram Summary ? 1. Complete two-dimensional, color flow and Doppler transthoracic echocardiogram is performed. ? 2. Mild LV enlargement with systolic dysfunction ejection fraction approximately 35%. ? 3. Paradoxical septal motion due to bundle branch block. ? 4. Mild aortic valve stenosis valve area 1.2 cm2. ? 5. Trivial AI. (3) Coagulopathy: Code(s): D68.9 - Coagulation defect, unspecified Status: Acute Assessment and Plan: Patient has been on warfarin for many years and her last INR check was at the end of October 2023, and INR was a over 3. -had DVT in her left leg more than 10 years ago which led to initiation of warfarin. On arrival her INR was > 20 -Patient was given vitamin K and FFP -Patient clearly has active GI bleed and hemoptysis which could be secondary to alveolar hemorrhage. She has been deteriorating with worsening hypoxia and respiratory distress and now requiring intubation and mechanical ventilation. She would probably not tolerate additional volume with FFP administration she will also be needing PRBC - Dr. Moore discussed with patient and her son regarding benefits and risks of Kcentra to reverse her coagulopathy. Explained the risk of blood clot formation to both patient and her son and they both verbalized understanding and agreed to proceed. In current situation the benefits outweigh the risks. 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 Otherwise patent bilateral lower extremity veins. No evidence of acute deep venous thrombosis. -will consult surgery for possible IVC filter placement -INR this morning is 1.8 this more -continue to hold aspirin and warfarin -continue to monitor coagulation studies (4) Anemia: Code(s): D64.9 - Anemia, unspecified Status: Acute Assessment and Plan: 11/24: Hemoglobin 7.8. Black OG tube suction, in light of active bleeding patient was transfused 1 unit of PRBC 11/25: Hemoglobin dropped to 7.0, will transfuse additional 1 unit of packed RBCs -stable hemoglobin -will transfuse as needed -GI following (5) Hemoptysis: Code(s): R04.2 - Hemoptysis
[2023-11-26] MEDS: ALBUMIN HUMAN 25% 25 GM/100 ML 100 ML IVPB ×3 (14:31→23:12)
[2023-11-26] MEDS: AMIODARONE 150 MG/D5W 100 ML 150 MG/100 ML BAG 600 MG IV CONT (15:26)
[2023-11-26] MEDS: ADENOSINE IV SOLN 6 MG/2 ML VIAL IV PUSH (15:27)
[2023-11-26] MEDS: AMIODARONE 360 MG/D5W 200 ML 360 MG/200 ML BAG 33.33 MG IV CONT (15:27)
[2023-11-26] MEDS: MIDAZOLAM HCL (*CRX) 2 MG/2 ML VIAL IV PUSH (15:27)
[2023-11-26] MEDS: ADENOSINE IV SOLN 6 MG/2 ML VIAL 12 MG IV PUSH (15:28)
[2023-11-26 16:35] LABS: Glucose Point of Care 361 mg/dl (65-105)
--- NOTE | 2023-11-26 17:36 | PC.NURSE ---
at 1450 pt went into svt and sustained in th 180's to 200's, notified and see Mar for meds given, pulse stayed present throughtout the episode and heart rate broke and has been 98 to 106 maintained, family notified of episode
[2023-11-26] MEDS: AMIODARONE 360 MG/D5W 200 ML 360 MG/200 ML BAG 16.67 MG IV CONT (20:53)
[2023-11-26 21:03] LABS: Anion Gap 11 mmol/L (8-16); Blood Urea Nitrogen 78 mg/dL (7-17); Calcium 8.5 mg/dL (8.4-10.2); Carbon Dioxide 19 mmol/L (22-30); Chloride 106 mmol/L (98-107); Estimated CRCL calculation 24 ml/min; Estimated Glomerular Filt Rate 27; Glucose 361 mg/dL (65-110); Magnesium 2.1 mg/dL (1.6-2.3); Potassium 4.1 mmol/L (3.4-5.0); Sodium 136 mmol/L (137-145)
--- NOTE | 2023-11-26 21:24 | ECG_ITS ---
Measurements Intervals [place] Rate: 143 P: 267 LA: 80 QRS: -21 QRSD: 154 T: 120 QT: 345 QTc: 533 Interpretive Statements SUPRAVENTRICULAR TACHYCARDIA LEFT BUNDLE BRANCH BLOCK [120+ ms QRS DURATION, 80+ ms Q/S IN V1/V2, 85+ ms R IN I/aVL/V5/V6] COMPARED TO ECG 11/24/2023 04:27:55 SUPRAVENTRICULAR TACHYCARDIA NOW PRESENT Electronically Signed On 11-27-2023 11:14:14 FRONT FACER by Jeri Dunne M.D.
--- NOTE | 2023-11-26 22:12 | PC.NURSE ---
Patient heart rate into SVT in the 150's-160's at 2119. Patient had been having runs of Vtach prior to sustained SVT. Dr. Hoffman notified of runs of VT around 2029 and RN received orders for BMP, Magnesium, and to change Duoneb breathing treatments to Xopenex due to the Albuterol. Patient also desatting into mid-80's at this time, leading to increase in FiO2 to 80% to maintain SpO2>90%. STAT EKG obtained at 2119 when patient went into dysrhythmia-see chart. Blood pressure and SpO2 stable at time of elevated heart rate. Patient's heart rate back to 90's NSR with BBB before Dr. Hoffman notified of change in status and RN received order to keep Amiodarone drip at 1 mg/min overnight and to administer Amiodarone bolus if patient were to change into sustained SVT again. Patient remains off of all sedation with only response to painful stimuli and no purposeful movement at this time. Will continue to monitor.
[2023-11-26 23:23] LABS: Glucose Point of Care 392 mg/dl (65-105)
[2023-11-27] VITALS (60 sets, daily range): BP systolic 79–142; BP diastolic 44–78; PULSE 75–136; RESP 16–25; TEMP 36.8–38.6; O2SAT 88–97
[2023-11-27] MEDS: AMIODARONE 360 MG/D5W 200 ML 360 MG/200 ML BAG 33.33 MG IV CONT ×3 (02:52→19:45)
[2023-11-27 05:02] LABS: Alveolar/Arterial O2 Gradient 464.3 mmHg; Carboxyhemoglobin 0.3 % THb (0-2.0); Fractional Inspired Oxygen 80 %; HCO3 ABG 17.3 mEq/l (22.0-26.0); Methemoglobin ABG 0.5 %THb (0-1.5); Oxygen Content ABG 10.2 %vol (16.0-22.0); Oxygen Saturation ABG 93.1 % (95.0-100.0); Oxyhemoglobin 91.9 % THb (90.0-100.0); PCO2 ABG 34.2 mmHg (35.0-45.0); PO2 ABG 70.2 mmHg (80.0-100.0); PO2 FiO2 Ratio Arterial Blood 0.88 %; Reduced Hemoglobin 7.3 %THb (0-5.0); pH ABG 7.322 (7.350-7.450)
[2023-11-27 05:03] LABS: Modified Allen's Test Pass; Site Drawn RIGHT RADIAL
[2023-11-27 05:04] LABS: Arterial Blood Gas PEEP 8 cmH2O; Arterial Blood Gas Tidal Volume 380 ml; Arterial Blood Gas Vent Mode CMV; Arterial Blood Gas Ventilator rate 20 /MIN; Device VENTILATOR
[2023-11-27] MEDS: ALBUMIN HUMAN 25% 25 GM/100 ML 100 ML IVPB ×2 (05:11→12:03)
[2023-11-27] MEDS: AMIODARONE 150 MG/D5W 100 ML 150 MG/100 ML BAG 600 MG IV CONT ×2 (05:13→15:15)
--- NOTE | 2023-11-27 05:20 | PC.NURSE ---
Patient back in rapid heart rate in 130's at 0513. Patient desatting to 87% on 70% FiO2. FiO2 increased to 100% and Amiodarone bolus administered per MD order for sustained elevated heart rate. Patient's SpO2 remains low at 89%. Ordered labs drawn and sent. Will continue to monitor.
[2023-11-27 05:25] LABS: Hematocrit 21.6 % (37.0-47.0); Mean Corpuscular HGB Conc 32.4 g/dl (32-36); Mean Corpuscular Hemoglobin 28.6 pg (26-34); Mean Corpuscular Volume 88.2 fl (80-100); Mean Platelet Volume 11.4 fl (7.4-10.4); Platelet Count Result 175 k/mm3 (150-375); Red Blood Count 2.45 M/mm3 (4.2-5.4); Red Cell Distribution Width 15.3 % (11.5-14.5); White Blood Count 17.4 K/mm3 (4.5-10.0)
[2023-11-27 05:37] LABS: Alanine Aminotransferase 35 U/L (6-35); Albumin Level 2.9 g/dL (3.5-5.1); Alkaline Phosphatase 89 U/L (38-126); Anion Gap 10 mmol/L (8-16); Aspartate Amino Transferase 45 U/L (14-36); Blood Urea Nitrogen 81 mg/dL (7-17); Calcium 8.5 mg/dL (8.4-10.2); Carbon Dioxide 20 mmol/L (22-30); Chloride 105 mmol/L (98-107); Estimated CRCL calculation 23 ml/min; Estimated Glomerular Filt Rate 26; Glucose 390 mg/dL (65-110); Magnesium 2.2 mg/dL (1.6-2.3); Phosphorus 2.2 mg/dL (2.5-4.5); Sodium 135 mmol/L (137-145)
[2023-11-27 05:41] LABS: INR 2.6; Prothrombin Time 29.6 Seconds (11.1-14.7)
[2023-11-27 05:42] LABS: Partial Thromboplastin Time 54.4 SECONDS (22.3-36.8)
[2023-11-27] MEDS: INSULIN ASPART (*BKC) 100 UNITS/ML SUB-Q ×4 (05:51→23:59)
[2023-11-27] MEDS: SODIUM CHLORIDE 0.9% IV 250 ML 30 ML IV CONT ×2 (05:52→11:16)
[2023-11-27] MEDS: CENTRAL LINE FLUSH 10 ML IV PUSH ×3 (05:52→21:29)
--- NOTE | 2023-11-27 06:40 | PC.NURSE ---
Dr. Hoffman notified of critical hemoglobin of 7.0 at 05:35 and updated on status of patient's desaturation on 100% FiO2. Received orders to transfuse 1 unit of PRBCs and to increase PEEP to 10. ACADEMIC AFFAIRS COORDINATOR aware of change on ventilator. Will continue to monitor.
--- NOTE | 2023-11-27 07:04 | ECG_ITS ---
Measurements Intervals [place] Rate: 81 P: -20 OR: 167 QRS: -26 QRSD: 161 T: 154 QT: 425 QTc: 496 Interpretive Statements SINUS RHYTHM LEFT BUNDLE BRANCH BLOCK COMPARED TO ECG 11/26/2023 21:29:15 SINUS RHYTHM NOW PRESENT Electronically Signed On 11-27-2023 11:25:30 INSPECTOR MACHINE CUT GLASS by Jeri Dunne M.D.
[2023-11-27 08:21] LABS: Mean Platelet Volume 11.6 fl (7.4-10.4); Platelet Count Result 148 k/mm3 (150-375)
[2023-11-27] MEDS: LEVALBUTEROL NEB 1.25 MG/3 ML INHALATION ×3 (08:22→20:15)
[2023-11-27 08:25] LABS: INR 2.6; Prothrombin Time 30.4 Seconds (11.1-14.7)
[2023-11-27 08:27] LABS: Fibrinogen 420 mg/dl (215-510); Partial Thromboplastin Time 53.3 SECONDS (22.3-36.8)
[2023-11-27 08:36] LABS: Troponin I 0.016 ng/mL (0.000-0.034)
[2023-11-27] MEDS: PANTOPRAZOLE SODIUM IV 40 MG VIAL IV PUSH ×2 (08:37→21:28)
[2023-11-27 08:38] LABS: D Dimer 15.07 ug/mL (<0.48)
[2023-11-27] MEDS: POTASSIUM/PHOSPHORUS/SODIUM 1.5 GM PACKET 1 PACKET PO (08:38)
[2023-11-27] MEDS: CEFEPIME 2 GM/NS 50 ML 2 GM/50 ML BAG IVPB (08:38)
[2023-11-27] MEDS: INSULIN GLARGINE (*BKC) 100 UNITS/ML 30 UNITS SUB-Q (08:38)
[2023-11-27] MEDS: MINERAL OIL/WHITE PETROLATUM OINTMENT 1 APPLIC EACH EYE ×2 (08:39→21:28)
[2023-11-27] MEDS: TOLNAFTATE 1% POWDER 45 GM BTL 1 APPLIC TOPICAL ×2 (08:39→21:28)
--- NOTE | 2023-11-27 08:45 | PM.PNCARD ---
Progress Note: A&P Assessment and Plan (1) Acute respiratory failure: Code(s): J96.00 - Acute respiratory failure, unspecified whether with hypoxia or hypercapnia Status: Acute Assessment and Plan: Remains intubated. Management as per ICU team. (2) Diffuse pulmonary alveolar hemorrhage: Code(s): R04.89 - Hemorrhage from other sites in respiratory passages Status: Acute Assessment and Plan: Pulmonary consulted. (3) Coagulopathy: Code(s): D68.9 - Coagulation defect, unspecified Status: Acute Assessment and Plan: INR >20 on presentation. Now down to 2.6. (4) Anemia: Code(s): D64.9 - Anemia, unspecified Status: Acute Assessment and Plan: Receiving blood transfusion (5) Cardiomyopathy: Code(s): I42.9 - Cardiomyopathy, unspecified Status: Acute Assessment and Plan: Echocardiogram / shows mild LV enlargement with LVEF 35-40%, grade 1 diastolic dysfunction, mild . Unable to initiate heart failure GDMT as this time as patient is critically ill. She will need re-evaluation of LVEF once she has recovered from her acute issues. (6) Atrial fibrillation with RVR: Code(s): I48.91 - Unspecified atrial fibrillation Status: Acute Assessment and Plan: Overnight, patient went into SVT. Was given Adenosine and then started on Amiodarone drip. She had some atrial fibrillation with RVR this morning. Currently in sinus rhythm. Recommend to continue Amiodarone drip at this time. Plan Recommendation and plan discussed with Dr. Hoffman. Subjective Date/time seen: 11/27/23 08:45 Interval history: Reason for visit: Heart failure with reduced ejection fraction, elevated troponin HPI: Aline Gomez is a 78 year old female with diabetes who has been chronically anticoagulated with warfarin for a DVT she had more than 10 years ago.? She was brought to the hospital by her son because of weakness. ? cardiology is being asked to see her because of cardiomyopathy.? Unable to obtain any history from the patient as she is intubated sedated currently.? However, patient's son is at the bedside and provided history.? He denies any history of congestive heart failure, coronary artery disease, or arrhythmias.? She had not been experiencing any edema or shortness of breath that he is aware of.? She did have a UTI recently and was placed on antibiotics at an urgent care.? Aside from that, she had been in her normal state of health until recently. Date of service 11/27: Overnight, patient went into SVT. Was given Adenosine and then started on Amiodarone drip. She had some atrial fibrillation with RVR this morning. Currently in sinus rhythm. Patient remains intubated. Getting blood transfusion this morning. Review of Systems Review of Systems: ROS unobtainable: Yes unobtainable due to endotracheal tube Exam Const: Other: Critically ill female, intubated on mechanical ventilation. HENMT: Other: OETT in place Resp: Other: On mechanical ventilation Cardio: Rate: regular rate Rhythm: regular rhythm Neuro: Other: Sedated Psych: Other: Sedated Objective Data Vital Signs Vital Signs: Vital Signs - 24 hr 11/26/23 09:00 11/26/23 10:17 11/26/23 10:00 Temperature 37.7 C H Pulse Rate 92 123 H 80 Respiratory Rate 20 Blood Pressure 99/46 L Pulse Oximetry 98 96 Oxygen Delivery Mechanical Ventilation Fraction of Inspired Oxygen 60 11/26/23 10:00 11/26/23 10:00 11/26/23 10:00 Temperature Pulse Rate 82 123 H 123 H Respiratory Rate 20 20 Blood Pressure 154/92 H 108/76 Pulse Oximetry 95 Oxygen Delivery Fraction of Inspired Oxygen 11/26/23 10:00 11/26/23 11:55 11/26/23 11:00 Temperature Pulse Rate 123 H 123 H 126 H Respiratory Rate 20 17 Blood Pressure 108/76 148/99 H Pulse Oximetry 100 Oxygen Delivery Fraction of Inspired Oxygen 11/26/23 12:09
--- NOTE | 2023-11-27 09:42 | PM.PNPUL ---
Progress Note: A&P Assessment and Plan (1) Acute respiratory failure: Code(s): J96.00 - Acute respiratory failure, unspecified whether with hypoxia or hypercapnia Status: Acute (2) Diffuse pulmonary alveolar hemorrhage: Code(s): R04.89 - Hemorrhage from other sites in respiratory passages Status: Acute Assessment and Plan: A 78-year-old female patient with a medical history of Diabetes Mellitus and previous Deep Vein Thrombosis episodes presented with symptoms of generalized weakness, nausea, vomiting, and a day of repeated hemoptysis. She also exhibited a significantly prolonged Prothrombin Time and INR. Due to hypoxic respiratory failure, she was intubated in the intensive care unit, where bloody tracheal secretions have been noted since her admission. Her clinical history and chest CT findings of diffuse alveolar infiltrates suggest a diffuse alveolar hemorrhage linked to coagulopathy. Her coagulopathy was managed with Kcentra, vitamin K, and fresh frozen plasma. Her gas exchange improved in the first 24 hours but not in the last day. With effective treatment and cessation of bleeding, significant clearing of bilateral alveolar infiltrates was observed on the x-ray. However, she continues to exhibit leukocytosis and requires vasopressor support due to hemodynamic instability. She is currently on two antibiotics. INR higher today. She continues to be on 2 antibiotics. Worsening respiratory status specifically gas exchange noted over the last 24 hours. Unclear whether this is related to episode of atrial fibrillation/CHF for which the patient is currently on IV amiodarone. Plan: The case was extensively discussed with the indian blanket weaver, with the escalating INR time emerging as a significant concern. The indian blanket weaver will order a new DIC workup. A fresh chest CT scan will be performed to evaluate any new infiltrates which could be associated with CHF, a recurrence of alveolar bleeding, or a lower respiratory tract infection, all of which may be contributing to the deteriorating gas exchange observed over the past [address] will also offer additional insights into the liver mass that was identified on the initial CT scan a few days prior. (3) Coagulopathy: Code(s): D68.9 - Coagulation defect, unspecified Status: Acute (4) Anemia: Code(s): D64.9 - Anemia, unspecified Status: Acute (5) Hemoptysis: Code(s): R04.2 - Hemoptysis Status: Acute (6) Diabetes mellitus: Code(s): E11.9 - Type 2 diabetes mellitus without complications Status: Acute (7) Leukocytosis: Code(s): D72.829 - Elevated white blood cell count, unspecified Status: Acute Subjective Date/time seen: 11/27/23 09:42 Interval history: Worsening respiratory status over last 24 hours. The patient was placed back on 100% oxygen. She was found to be in atrial fibrillation last night and started on amiodarone. Currently in normal sinus rhythm. Also diagnosed with congestive heart failure under the care of cardiology services. She remains on vasopressor support. INR creeping up. Blood clots through tracheal suctioning. Reportedly mostly old blood clots. Review of Systems Review of Systems: ROS unobtainable: Yes unobtainable due to endotracheal tube and unobtainable due to medical condition Exam Narrative: GENERAL APPEARANCE: Well developed, well nourished, fully sedated and intubated in the intensive care unit SKIN: Inspection of the skin reveals no rashes, ulcerations or petechiae. HEENT: Sclerae anicteric and conjunctivae pink and moist. NECK: Supple. There was no thyroid enlargement, and no tenderness, or masses were felt. LUNGS: Auscultation of the lungs revealed clear breath sounds anteriorly no wheezing CARDIAC: There was a regular rate and rhythm without any murmurs, gallops, rubs. ABDOMEN: Soft and nontender with normal bowel sounds. There was no organomegaly. LYMPH
[2023-11-27] MEDS: PHYTONADIONE ADULT INJ 10 MG in DEXTROSE 5% IN WATER 50 ML 100 MG IVPB (10:31)
[2023-11-27] MEDS: FUROSEMIDE INJ 40 MG/4 ML VIAL IV PUSH ×2 (10:56→15:20)
[2023-11-27] MEDS: FUROSEMIDE INJ 40 MG/4 ML VIAL ×2 (11:16→18:10)
--- NOTE | 2023-11-27 11:22 | PCFNICU ---
Addendum entered by Sarika Starr RD, LDN 11/27/23 12:44: Tube feeding change per Lapel Baster. Recommend: Glucerna 1.2 at 55 ml/hr with Protein Modular of Prosource once daily. Total Nutrition: 1532 kcals/93 gms protein/974 ml water. Will continue to follow. Original Note: ICU Rounding Note: Pt current nutrition is Vital 1.2 @ 55 ml/h @ 1452 kcal (100% EER) , 91 g protein (85% estimated needs @ 1.4 g/kg), 981 ml free water. Tolerating well Nutrition recommendation: Continue with current tube feeding orders and plan. Agree with orders Last recorded weight is 79.6 kg. Bowel Motility: No BMs charted Labs Reviewed: Hgb 7.0, Hct 21.6, Alb 2.9, Na 135, GFR 26, BUN 81, Cre 1.9, Glu 390 Meds Noted: No pressors. No sedation. Lantus, protonix, vancomycin Skin: Protective dressing Additional Notes: ICU vent day 2. Tolerating tube feeds well. Continue with current nutrition care plan Following daily in ICU rounds. Will monitor weight, labs, skin, tube feeding tolerance, meds every Friday and Friday. .
[2023-11-27 11:29] LABS: Glucose Point of Care 404 mg/dl (65-105)
--- NOTE | 2023-11-27 11:46 | WPDINTPN ---
Progress Note: A&P Assessment and Plan (1) Acute respiratory failure: Code(s): J96.00 - Acute respiratory failure, unspecified whether with hypoxia or hypercapnia Status: Acute Assessment and Plan: 11/24: On arrival to ICU patient was hypoxic on 10 L nasal cannula. She was in mild respiratory distress and tachypneic. Using accessory muscles and abdominal breathing. Patient also has hemoptysis and upper GI bleed hence not a candidate for NIPPV -Dr Moore discussed option of intubation and mechanical ventilation secure airway and elevated respiratory distress with the patient and her son the both were agreeable after understanding the risk and benefit. -11/24: Patient intubated in ICU -PCR for influenza RSV and COVID negative -11/24CT scan of the chest shows diffuse lung disease likely pulmonary edema versus alveolar hemorrhage -appreciate pulmonology evaluation and recommendation, continue current care -blood clots have been removed by respiratory therapist from the ETT and airway -continue vancomycin and cefepime (11/24) -continue bronchodilator -chest x-ray this morning: ?Interval development of diffuse lung disease, consistent with pulmonary edema and/or pneumonia -patient has been hypoxic, with increasing oxygen requirement, peep has been increased to 10. -ABGs reviewed -discussed with pulmonology, will repeat chest CT as as below 11/27: CT scan of the chest, abdomen and pelvis without contrast IMPRESSION: 1. Interval progression of diffuse lung disease which could represent either severe pulmonary edema, pneumonia or combination thereof. 2. Very small bilateral pleural effusions. 3. 12 cm masslike region of decreased density at the cephalad aspect right hepatic lobe which could represent focal hepatic steatosis, malignancy either primary or metastatic disease or other benign neoplasm such as hemangioma. Recommend further evaluation with pre and postcontrast MRI when clinically appropriate. 4. Extensive diverticulosis. 5. Minimal ascites. (2) Elevated troponin: Code(s): R79.89 - Other specified abnormal findings of blood chemistry Status: Acute Assessment and Plan: Likely secondary to bleeding, respiratory failure, shock, sepsis -Not a candidate for anticoagulation or antiplatelet agent at this time. -cardiomyopathy could be related to ischemic heart disease -appreciate cardiology evaluation recommendation, unable to initiate heart failure GDMT at this time, given that the patient is critically ill. 11/24/2023 echocardiogram Summary ? 1. Complete two-dimensional, color flow and Doppler transthoracic echocardiogram is performed. ? 2. Mild LV enlargement with systolic dysfunction ejection fraction approximately 35%. ? 3. Paradoxical septal motion due to bundle branch block. ? 4. Mild aortic valve stenosis valve area 1.2 cm2. ? 5. Trivial AI. (3) Atrial fibrillation with RVR: Code(s): I48.91 - Unspecified atrial fibrillation Status: Acute Assessment and Plan: Patient went into SVT yesterday with rates in the 200s, was given Anacin 6 mg and 12 mg and was started on amiodarone infusion. Had some atrial fibrillation with RVR this morning on 11/27. -EKG showed left bundle branch block with no change in the EKG since 11/24 -appreciate cardiology evaluation -continue amiodarone infusion at this time (4) Coagulopathy: Code(s): D68.9 - Coagulation defect, unspecified Status: Acute Assessment and Plan: Patient has been on warfarin for many years and her last INR check was at the end of October 2023, and INR was a over 3. -had DVT in her left leg more than 10 years ago which led to initiation of warfarin. On arrival her INR was > 20 -Patient was given vitamin K and FFP -Patient clearly has active GI bleed and hemoptysis which could be secondary to alveolar hemorrhage. She has been deteriorating with worsening hypoxia and respiratory distress and now requiring intubation and
--- NOTE | 2023-11-27 13:17 | PM.PNGS ---
Progress Note: A&P Assessment and Plan (1) DVT (deep venous thrombosis): Code(s): I82.409 - Acute embolism and thrombosis of unspecified deep veins of unspecified lower extremity Status: Acute Assessment and Plan: procedure canceled secondary to worsening respiratory status, d/w adding machine mechanic team and they will reach back out if pt stabilizes Subjective Subjective Date/Time Seen: 11/27/23 13:17 Interval history: IVC filter placement canceled secondary to worsening pulmonary fxn Review of Systems Review of Systems: ROS unobtainable: Yes unobtainable due to endotracheal tube and unobtainable due to medical condition Exam Const: General: ill appearing and patient obtunded Resp: Auscultation: diminished lung sounds Cardio: Rate: tachycardic Rhythm: regular rhythm GI: Inspection: normal to inspection Objective Data Vital Signs Vital Signs: Vital Signs - 24 hr 11/26/23 13:18 11/26/23 13:19 11/26/23 14:04 Temperature 38.4 C H Pulse Rate 102 H 101 H Respiratory Rate 21 H Blood Pressure Pulse Oximetry 95 Oxygen Delivery Mechanical Ventilation Fraction of Inspired Oxygen 50 11/26/23 14:00 11/26/23 14:00 11/26/23 15:04 Temperature 38.3 C H Pulse Rate 105 H 105 H Respiratory Rate 20 Blood Pressure 106/20 L Pulse Oximetry 93 Oxygen Delivery Fraction of Inspired Oxygen 11/26/23 15:00 11/26/23 16:00 11/26/23 16:00 Temperature 38.2 C H Pulse Rate 175 H 102 H 102 H Respiratory Rate 22 H 21 H Blood Pressure 97/64 L 114/53 L Pulse Oximetry 92 95 Oxygen Delivery Fraction of Inspired Oxygen 11/26/23 16:00 11/26/23 16:00 11/26/23 16:44 Temperature Pulse Rate 102 H 100 Respiratory Rate 21 H Blood Pressure Pulse Oximetry 95 95 Oxygen Delivery Mechanical Ventilation Mechanical Ventilation Fraction of Inspired Oxygen 50 50 50 11/26/23 17:00 11/26/23 18:00 11/26/23 18:00 Temperature 38.2 C H 38.2 C H Pulse Rate 98 97 97 Respiratory Rate 20 20 Blood Pressure 110/50 L 105/53 L Pulse Oximetry 92 97 Oxygen Delivery Fraction of Inspired Oxygen 11/26/23 19:00 11/26/23 20:00 11/26/23 20:00 Temperature 38.3 C H 37.8 C H Pulse Rate 88 89 Respiratory Rate 21 H 21 H Blood Pressure 118/56 L 120/61 Pulse Oximetry 97 98 Oxygen Delivery Fraction of Inspired Oxygen 50 11/26/23 20:00 11/26/23 20:19 11/26/23 20:30 Temperature 38.3 C H Pulse Rate 89 99 Respiratory Rate 21 H Blood Pressure Pulse Oximetry 98 95 Oxygen Delivery Mechanical Ventilation Mechanical Ventilation Fraction of Inspired Oxygen 50 80 11/26/23 20:30 11/26/23 20:53 11/26/23 20:54 Temperature Pulse Rate 99 95 97 Respiratory Rate 20 Blood Pressure 137/66 137/66 Pulse Oximetry Oxygen Delivery Fraction of Inspired Oxygen 11/26/23 21:20 11/26/23 21:29 11/26/23 21:19 Temperature 37.2 C 37.2 C 37.2 C Pulse Rate 160 H 154 H Respiratory Rate 22 H 35 H Blood Pressure 108/62 109/69 Pulse Oximetry 93 92 Oxygen Delivery Fraction of Inspired Oxygen 11/26/23 21:20 11/26/23 21:45 11/26/23 20:00 Temperature 37.2 C Pulse Rate 160 H 94 87 Respiratory Rate 20 Blood Pressure 108/62 117/52 L Pulse Oximetry 95 Oxygen Delivery Fraction of Inspired Oxygen 11/26/23 22:00 11/26/23 22:00 11/26/23 23:00 Temperature 37.1 C 36.9 C Pulse Rate 90 91 86 Respiratory Rate 20 20 Blood Pressure 108/52 L 117/52 L Pulse Oximetry 97 97 Oxygen Delivery Fraction of Inspired Oxygen 11/26/23 23:38 11/26/23 23:45 11/26/23 23:47 Temperature Pulse Rate 88 88 Respiratory Rate 20 Blood Pressure Pulse Oximetry 93 93 Oxygen Delivery Mechanical Ventilation Mechanical Ventilation Fraction of Inspired Oxygen 80 80 80 11/27/23 00:00 11/27/23 00:00 11/27/23 01:00 Temperature 36.9 C 36.8 C Pulse Rate 84 83 79 Respiratory Rate 20 20 Blood Pressure 107/51 L 99/52 L Pulse
--- NOTE | 2023-11-27 15:09 | ECG_ITS ---
Measurements Intervals [place] Rate: 131 P: AR: 0 QRS: -31 QRSD: 161 T: 170 QT: 338 QTc: 499 Interpretive Statements ATRIAL FIBRILLATION WITH RAPID VENTRICULAR RESPONSE MARKED LEFT AXIS DEVIATION [QRS AXIS < -30] LEFT BUNDLE BRANCH BLOCK [120+ ms QRS DURATION, 80+ ms Q/S IN V1/V2, 85+ ms R IN I/aVL/V5/V6] ABNORMAL ECG COMPARED TO ECG 11/27/2023 07:12:57 ATRIAL FIBRILLATION NOW PRESENT Electronically Signed On 11-28-2023 7:05:44 ADOBE BLOCK MAKER by Domo Tuttle M.D.
[2023-11-27] MEDS: MIDAZOLAM HCL (*CRX) 2 MG/2 ML VIAL IV PUSH (15:16)
[2023-11-27] MEDS: METOPROLOL TARTRATE INJ 5 MG/5 ML VIAL 2.5 MG IV PUSH ×2 (15:16→23:56)
[2023-11-27 16:06] LABS: Troponin I 0.016 ng/mL (0.000-0.034)
[2023-11-27 17:41] LABS: Vancomycin Trough 14.3 ug/mL (10.0-20.0)
--- NOTE | 2023-11-27 17:45 | PDONCCN ---
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 She was started on antibiotic. Her INR went up. She was complaining of tiredness and fatigue. There is no history of PE in atrial fibrillation. Patient had CT chest abdomen and pelvis done that showed liver mass. Patient developed respiratory failure after the CT scan and got intubated. CT chest also showed showed diffuse lung disease with pulmonary edema. INR was more than 20 now has reversed down to 2.6 after discontinuation of warfarin and FFP administration. PTT was 96.2 now down to 53.3. She remains anemic with hemoglobin of 7.0 and iron deficiency was found. Patient had some hematemesis. Patient was started on vancomycin and cefepime. Patient family denies any previous history of malignancy. Review of Systems - Review of Systems All systems reviewed & are unremarkable except as noted in HPI and [facility] Medical History: Medical History (Last Updated 11/25/23 @ 16:45 by Acacia Rey MD) Diabetes mellitus DVT (deep venous thrombosis) extensive LLE Gout Peripheral neuropathy Surgical History: Surgical History (Last Reviewed 11/25/23 @ 16:42 by Acacia Rey MD) Hx of cholecystectomy with possible appy at the same time Family History: Family History (Last Reviewed 11/25/23 @ 16:42 by Acacia Rey MD) Father Diabetes mellitus - Social History Social History: Social History (Last Reviewed 11/25/23 @ 16:42 by Acacia Rey MD) Alcohol Use: Alcohol intake: never Substance Use: Substance use: never Substance use type: does not use Others: Spiritual care concerns: No Smoking Status: Smoking status: Never smoker Exam - Vital Signs Vital Signs - 24 hr 11/26/23 18:00 11/26/23 18:00 11/26/23 19:00 Temperature 38.2 C H 38.3 C H Pulse Rate 97 97 88 Respiratory Rate 20 21 H Blood Pressure 105/53 L 118/56 L Pulse Oximetry 97 97 Oxygen Delivery Fraction of Inspired Oxygen 11/26/23 20:00 11/26/23 20:00 11/26/23 20:00 Temperature 37.8 C H Pulse Rate 89 89 Respiratory Rate 21 H 21 H Blood Pressure 120/61 Pulse Oximetry 98 98 Oxygen Delivery Mechanical Ventilation Fraction of Inspired Oxygen 50 50 11/26/23 20:19 11/26/23 20:30 11/26/23 20:30 Temperature 38.3 C H Pulse Rate 99 99 Respiratory Rate 20 Blood Pressure Pulse Oximetry 95 Oxygen Delivery Mechanical Ventilation Fraction of Inspired Oxygen 80 11/26/23 20:53 11/26/23 20:54 11/26/23 21:20 Temperature 37.2 C Pulse Rate 95 97 160 H Respiratory Rate 22 H Blood Pressure 137/66 137/66 108/62 Pulse Oximetry 93 Oxygen Delivery Fraction of Inspired Oxygen 11/26/23 21:29 11/26/23 21:19 11/26/23 21:20 Temperature 37.2 C 37.2 C Pulse Rate 154 H 160 H Respiratory Rate 35 H Blood Pressure 109/69 108/62 Pulse Oximetry 92 Oxygen Delivery Fraction of Inspired Oxygen 11/26/23 21:45 11/26/23 20:00 11/26/23 22:00 Temperature 37.2 C Pulse Rate 94 87 90 Respiratory Rate 20 Blood Pressure 117/52 L Pulse Oximetry 95 Oxygen Delivery Fraction of Inspired Oxygen 11/26/23 22:00 11/26/23 23:00 11/26/23 23:38 Temperature 37.1 C 36.9 C Pulse Rate 91 86 88 Respiratory Rate 20 20 Blood Pressure 108/52 L 117/52 L Pulse Oximetry 97 97 93 Oxygen Delivery Mechanical Ventilation Fraction of Inspired Oxygen 80 11/26/23 23:45 11/26/23 23:47 11/27/23 00:00 Temperature 36.9 C Pulse Rate 88 84 Respiratory Rate 20 20 Blood Pressure
[2023-11-27 17:56] LABS: Glucose Point of Care 418 mg/dl (65-105)
[2023-11-27] MEDS: IRON SUCROSE COMPLEX 500 MG in SODIUM CHLORIDE 0.9% IV 250 ML 79 MG IVPB (18:13)
[2023-11-27] MEDS: EPOETIN ALFA-EPBX 20,000 UNITS/ML VIAL 20000 UNITS SUB-Q (18:13)
--- NOTE | 2023-11-27 18:34 | PC.NURSE ---
pt had episode of afib with rvr, amio bolus given and metropolol 2.5 given, amio remains at 1mg, then had discussion, Dr. Hoffman nurse and oldest son about pt's being unstable, almost maxed out on vent support and herat rate keeps going into dysrythmias, after doctor left pt's other son here and discussed plan of care along with code state, later family stated that they wanted a DNR order but not to stop treatment, this relayed to dr. Hoffman via phone and DNR status recieved, at this time pt's went back into a-fib rvr , notified Dr. Hoffman and new orders recieved
[2023-11-27] MEDS: METOPROLOL TARTRATE INJ 5 MG/5 ML VIAL IV PUSH (18:44)
[2023-11-27] MEDS: NOREPINEPHRINE 8 MG/D5W 250 ML 8 MG/250 ML BAG 9.38 MG IV CONT (19:21)
[2023-11-27] MEDS: VANCOMYCIN 1,250 MG/NS 250 ML 1,250 MG/250 ML BAG 166.67 MG IVPB (19:29)
[2023-11-27] MEDS: ACETAMINOPHEN ELIXIR 325 MG/10.15 ML UDC 650 MG PO (19:42)
[2023-11-27] MEDS: INSULIN GLARGINE (*BKC) 100 UNITS/ML 20 UNITS SUB-Q (21:28)
[2023-11-28] VITALS (42 sets, daily range): BP systolic 74–111; BP diastolic 46–66; PULSE 82–128; RESP 20–27; TEMP 38.2–38.4; O2SAT 93–100
--- NOTE | 2023-11-28 00:12 | PC.NURSE ---
Orders to continue sedation for ventilation asynchrony. Patient was unarousable prior to initiation of sedation. Will continue to monitor.
[2023-11-28 00:38] LABS: Glucose Point of Care 366 mg/dl (65-105)
[2023-11-28] MEDS: AMIODARONE 360 MG/D5W 200 ML 360 MG/200 ML BAG 33.33 MG IV CONT ×2 (01:13→06:56)
[2023-11-28] MEDS: LEVALBUTEROL NEB 1.25 MG/3 ML INHALATION ×2 (02:06→08:06)
[2023-11-28] MEDS: METOPROLOL TARTRATE INJ 5 MG/5 ML VIAL 2.5 MG IV PUSH (03:46)
[2023-11-28] MEDS: ACETAMINOPHEN ELIXIR 325 MG/10.15 ML UDC 650 MG PO (04:33)
[2023-11-28 04:57] LABS: Alveolar/Arterial O2 Gradient 371.3 mmHg; Base Excess ABG -9.3 mEq/l (+/-2.0); Carboxyhemoglobin 0.3 % THb (0-2.0); Fractional Inspired Oxygen 70 %; HCO3 ABG 17.9 mEq/l (22.0-26.0); Methemoglobin ABG 0.5 %THb (0-1.5); Oxygen Content ABG 12.9 %vol (16.0-22.0); Oxygen Saturation ABG 93.5 % (95.0-100.0); Oxyhemoglobin 93.7 % THb (90.0-100.0); PCO2 ABG 44.6 mmHg (35.0-45.0); PO2 ABG 79.9 mmHg (80.0-100.0); PO2 FiO2 Ratio Arterial Blood 1.14 %; Reduced Hemoglobin 5.5 %THb (0-5.0); Total Hemoglobin 9.7 g/dL (12.0-18.0)
[2023-11-28 04:58] LABS: Device VENTILATOR; Site Drawn RIGHT BRACHIAL; pH ABG 7.221 (7.350-7.450)
[2023-11-28 05:00] LABS: Arterial Blood Gas PEEP 10 cmH2O; Arterial Blood Gas Vent Mode CMV; Arterial Blood Gas Ventilator rate 20 /MIN
[2023-11-28 05:01] LABS: Arterial Blood Gas Tidal Volume 380 ml
[2023-11-28] MEDS: INSULIN ASPART (*BKC) 100 UNITS/ML SUB-Q ×2 (05:38→11:58)
[2023-11-28] MEDS: CENTRAL LINE FLUSH 10 ML IV PUSH (05:39)
[2023-11-28 05:44] LABS: Glucose Point of Care 390 mg/dl (65-105)
[2023-11-28] MEDS: NOREPINEPHRINE 8 MG/D5W 250 ML 8 MG/250 ML BAG 43.13 MG IV CONT (06:09)
[2023-11-28 06:13] LABS: Hematocrit 26.6 % (37.0-47.0); Hemoglobin 8.3 g/dL (12.0-15.0); Mean Corpuscular HGB Conc 31.2 g/dl (32-36); Mean Corpuscular Hemoglobin 28.2 pg (26-34); Mean Corpuscular Volume 90.5 fl (80-100); Mean Platelet Volume 12.4 fl (7.4-10.4); Platelet Count Result 188 k/mm3 (150-375); Red Blood Count 2.94 M/mm3 (4.2-5.4); Red Cell Distribution Width 16.7 % (11.5-14.5); White Blood Count 26.2 K/mm3 (4.5-10.0)
[2023-11-28 06:24] LABS: Alanine Aminotransferase 36 U/L (6-35); Albumin Level 3.1 g/dL (3.5-5.1); Alkaline Phosphatase 106 U/L (38-126); Anion Gap 14 mmol/L (8-16); Aspartate Amino Transferase 91 U/L (14-36); Bilirubin,Total 2.8 mg/dL (0.2-1.3); Blood Urea Nitrogen 90 mg/dL (7-17); Calcium 8.5 mg/dL (8.4-10.2); Carbon Dioxide 18 mmol/L (22-30); Chloride 104 mmol/L (98-107); Estimated CRCL calculation 17 ml/min; Estimated Glomerular Filt Rate 17; Glucose 372 mg/dL (65-110); Magnesium 2.1 mg/dL (1.6-2.3); Phosphorus 1.9 mg/dL (2.5-4.5); Potassium 4.1 mmol/L (3.4-5.0); Sodium 136 mmol/L (137-145)
[2023-11-28 06:27] LABS: INR 1.5; Partial Thromboplastin Time 50.6 SECONDS (22.3-36.8); Prothrombin Time 19.3 Seconds (11.1-14.7)
[2023-11-28] MEDS: SODIUM BICARBONATE 8.4% 50 MEQ/50 ML SYRINGE 100 MEQ IV PUSH (08:18)
[2023-11-28] MEDS: POTASSIUM/PHOSPHORUS/SODIUM 1.5 GM PACKET 1 PACKET PO (09:05)
[2023-11-28] MEDS: CEFEPIME 2 GM/NS 50 ML 2 GM/50 ML BAG IVPB (09:05)
[2023-11-28] MEDS: MINERAL OIL/WHITE PETROLATUM OINTMENT 1 APPLIC EACH EYE (09:06)
[2023-11-28] MEDS: INSULIN GLARGINE (*BKC) 100 UNITS/ML 40 UNITS SUB-Q (09:06)
[2023-11-28] MEDS: TOLNAFTATE 1% POWDER 45 GM BTL 1 APPLIC TOPICAL (09:06)
[2023-11-28] MEDS: PANTOPRAZOLE SODIUM IV 40 MG VIAL IV PUSH (09:06)
[2023-11-28] MEDS: VASOPRESSIN INJ 100 UNITS in DEXTROSE 5% 95 ML IV CONT (09:34)
--- NOTE | 2023-11-28 10:49 | WPDINTPN ---
Progress Note: A&P Assessment and Plan (1) Shock: Code(s): R57.9 - Shock, unspecified Status: Acute Assessment and Plan: Patient currently in shock, multifactorial, infection, acute bleeding, cardiogenic versus septic -currently almost maxed out on Levophed -added vasopressin -given bicarb IV push -continue cefepime and vancomycin -discussed with patient's family in rounds, discussed with them regarding patient's guarded prognosis and that she is critically ill with multi system organ failure. The awaiting for the sister and the of friendly and friends to come and visit the patient, and then they are thinking to make her comfort measures (2) Acute respiratory failure: Code(s): J96.00 - Acute respiratory failure, unspecified whether with hypoxia or hypercapnia Status: Acute Assessment and Plan: 11/24: On arrival to ICU patient was hypoxic on 10 L nasal cannula. She was in mild respiratory distress and tachypneic. Using accessory muscles and abdominal breathing. Patient also has hemoptysis and upper GI bleed hence not a candidate for NIPPV -Dr Moore discussed option of intubation and mechanical ventilation secure airway and elevated respiratory distress with the patient and her son the both were agreeable after understanding the risk and benefit. -11/24: Patient intubated in ICU -PCR for influenza RSV and COVID negative -11/24: CT scan of the chest shows diffuse lung disease likely pulmonary edema versus alveolar hemorrhage -appreciate pulmonology evaluation and recommendation, continue current care -blood clots have been removed by respiratory therapist from the ETT and airway -continue vancomycin and cefepime (11/24) -continue bronchodilator -chest x-ray this morning: ?Stable diffuse groundglass pulmonary disease, relatively sparing the apices -ABGs reviewed -discussed with pulmonology, 11/27: CT scan of the chest, abdomen and pelvis without contrast IMPRESSION: 1. Interval progression of diffuse lung disease which could represent either severe pulmonary edema, pneumonia or combination thereof. 2. Very small bilateral pleural effusions. 3. 12 cm masslike region of decreased density at the cephalad aspect right hepatic lobe which could represent focal hepatic steatosis, malignancy either primary or metastatic disease or other benign neoplasm such as hemangioma. Recommend further evaluation with pre and postcontrast MRI when clinically appropriate. 4. Extensive diverticulosis. 5. Minimal ascites. (3) Elevated troponin: Code(s): R79.89 - Other specified abnormal findings of blood chemistry Status: Acute Assessment and Plan: Likely secondary to bleeding, respiratory failure, shock, sepsis -Not a candidate for anticoagulation or antiplatelet agent at this time. -cardiomyopathy could be related to ischemic heart disease -appreciate cardiology evaluation recommendation, unable to initiate heart failure GDMT at this time, given that the patient is critically ill. 11/24/2023 echocardiogram Summary ? 1. Complete two-dimensional, color flow and Doppler transthoracic echocardiogram is performed. ? 2. Mild LV enlargement with systolic dysfunction ejection fraction approximately 35%. ? 3. Paradoxical septal motion due to bundle branch block. ? 4. Mild aortic valve stenosis valve area 1.2 cm2. ? 5. Trivial AI. (4) Atrial fibrillation with RVR: Code(s): I48.91 - Unspecified atrial fibrillation Status: Acute Assessment and Plan: Patient went into SVT on 11/26 with rates in the 200s, was given adenosine 6 mg and 12 mg and was started on amiodarone infusion. Had some atrial fibrillation with RVR this morning on 11/27. -EKG showed left bundle branch block with no change in the EKG since 11/24 -appreciate cardiology evaluation -continue amiodarone infusion at this time (5) Coagulopathy: Code(s): D68.9 - Coagulation defect, unspecified Status: Acute Assessmen
[2023-11-28] MEDS: NOREPINEPHRINE 8 MG/D5W 250 ML 8 MG/250 ML BAG 56.25 MG IV CONT (10:56)
[2023-11-28 11:55] LABS: Glucose Point of Care 346 mg/dl (65-105)
[2023-11-28] MEDS: MORPHINE SULFATE INJ (*CRX) 10 MG/ML AMP 5 MG IV PUSH (12:41)
[2023-11-28] MEDS: LORazepam INJ (*CRX) 2 MG/ML VIAL IV PUSH (12:41)
--- NOTE | 2023-11-28 12:45 | PC.NURSE ---
Pt extubated to comfort measures. Given one time meds ordered by Dr. Hoffman. RT at bedside to extubated. [place] to bedside for family support.
--- NOTE | 2023-11-28 13:15 | PCNFU ---
Nutrition Follow-Up Complete: Inadequate Energy Expenditure as related to mechanical ventilation as evidenced by NPO. Goal: Meet estimated nutritional needs. Patient has limited progress towards goal, we will continue current goal. Pt current nutrition is Glucerna 1.2 at 55 ml/hr on hold. Last recorded weight is 80.6 kg, up from 76.85 kg on admit. Bowel Motility:No BM reported. Labs Reviewed: Glu 372, GFR 17, BUN 90, Cr 2.7,Alb 3.1 Meds Noted:Lantus, NovoLog, Protonix, Vancomycin, Levophed, Protonix, Versed, Fentanyl. Skin:WNL Additional Notes: Patient current with mechanical vent. Dyer Assistant had discussions with family today regarding comfort measures 2/2 to multi organ system failure. Patient tube feedings have been stopped at this time 2/2 to 1600 ml residual. Agree with diet orders at this time. Will monitor weight, labs, skin, tube feeding tolerance, meds every Friday and Friday.
--- NOTE | 2023-11-28 16:47 | P.DN_ITS ---
Discharge Summary Date and Time Date of : 11/28/23 Time of : 13:05 Provider Pronounced By: Anika Blankenship RN and Mimi Ambrosio RN Probable Cause of Probable Cause of : respiratory failure, multi-system organ failure, sepsis Summary Hospital Course: This is a 78-year-old female patient who was admitted for respiratory distress, sepsis, hemoptysis who was moved to the ICU shortly after admission to the floor. She was not a candidate for noninvasive positive-pressure ventilation due to hemoptysis and upper GI bleed. Thus, patient and family agreed to intubation and mechanical ventilation. Unfortunately patient progressed with numerous medical conditions including multi-system organ failure, coagulopathy and possible carcinoma. Family decided after several days to institute comfort measures only and allow patient passed peacefully. Patient was extubated later when and to cardio respiratory arrest and was declared at 1305 today. Additional Data Confirmation of as documented by pronouncing clinician: Pupillary Reflex, Palpable Pulses, Response to Stimuli, Heart Tones and Breath Sounds Family: at bedside Name of Provider Notified: Dr. Oakley and Dr. Hoffman Time Provider Notified: 13:06 Was code activated?: No (comfort measures) Provider Requests Autopsy: No Family Requests Autopsy: No Dental Assistant Instructor Notified: Yes Date [facility] Notified of : 11/28/23 Time [facility] Notified of : 13:28 Hospice patient?: No
[2023-11-29 16:32] LABS: Chloride Rand Ur <20 mmol/L (32-290); Creatinine Random Urine 199 mg/dL (20-275)
[2023-11-30 04:30] LABS: Hexagonal Phase Confirm Positive (Negative); Lupus dRVVT Confirmation Negative (Negative)
[2023-11-30 05:02] LABS: Lupus dRVVT Screen 48 sec (<=45); PTT-LA Screen 59 sec (<=40)
[2023-12-01 13:18] LABS: Total Hemoglobin 7.8 g/dL (12.0-18.0)
[2023-12-04 18:37] LABS: Anti Cardio Antibody IgM <2.0 MPL-U/mL (<20.0); Anti Cardiolipin Antibody IgG <2.0 GPL-U/mL (<20.0)
== END 2023-11-28 13:05 | disposition expired | DRG 870 ==
LOC: ANHED 07:07 → ANHIMU 08:22 → ANHICU 09:51
PROVIDERS: Internal Medicine; Internal Medicine Gastroenterology; Internal Medicine Pulmonary Disease; Admitting Provider Internal Medicine; Emergency Provider Emergency Medicine; Visit Provider Nurse Practitioner
PROC: 0DJ08ZZ Inspection of Upper Intestinal Tract, Via Natural or Artificial Opening Endoscopic (ICD-10-PCS; CPT 43235; principal; 2023-11-25 13:00)
DX: A41.9 Sepsis, unspecified organism (principal); R65.21 Severe sepsis with septic shock; J96.01 Acute respiratory failure with hypoxia; R04.2 Hemoptysis; R04.89 Hemorrhage from other sites in respiratory passages; I82.512 Chronic embolism and thrombosis of left femoral vein; G93.40 Encephalopathy, unspecified; N17.9 Acute kidney failure, unspecified; D68.32 Hemorrhagic disorder due to extrinsic circulating anticoagulants; D62 Acute posthemorrhagic anemia; T45.515A Adverse effect of anticoagulants, initial encounter; R57.1 Hypovolemic shock; I46.8 Cardiac arrest due to other underlying condition; Z66 Do not resuscitate; R57.0 Cardiogenic shock; E11.42 Type 2 diabetes mellitus with diabetic polyneuropathy; N28.9 Disorder of kidney and ureter, unspecified; D50.9 Iron deficiency anemia, unspecified; K31.7 Polyp of stomach and duodenum; K29.70 Gastritis, unspecified, without bleeding; D63.8 Anemia in other chronic diseases classified elsewhere; I50.9 Heart failure, unspecified; Z20.822 Contact with and (suspected) exposure to COVID-19; I25.5 Ischemic cardiomyopathy; E83.42 Hypomagnesemia; I48.91 Unspecified atrial fibrillation; R16.0 Hepatomegaly, not elsewhere classified; R79.89 Other specified abnormal findings of blood chemistry; Z53.8 Procedure and treatment not carried out for other reasons; Z79.82 Long term (current) use of aspirin; Z79.01 Long term (current) use of anticoagulants; Z90.49 Acquired absence of other specified parts of digestive tract; Z51.5 Encounter for palliative care
CPT/HCPCS: 31500; 36415; 36430; 36600; 70450; 71045; 71250; 74176; 80048; 80053; 80202; 81001; 82375; 82436; 82550; 82570; 82607; 82728; 82746; 82805; 82948; 83036; 83050; 83540; 83550; 83605; 83690; 83735; 83880; 84100; 84133; 84145; 84300; 84443; 84484; 85025; 85027; 85049; 85380; 85384; 85610; 85613; 85730; 85999; 86146; 86147; 86225; 86850; 86900; 86901; 86923; 87040; 87070; 87081; 87086; 87205; 87637; 87641; 93005; 93306; 93970; 94002; 94003; 94640; 96361; 96365; 96366; 96375; 99285; A9270; C1751; C9113; G0378; J0153; J0171; J0282; J0692; J1756; J1815; J1940; J2060; J2250; J2270; J2405; J3010; J3370; J3430; J3475; J7030; J7050; J7168; P9016; P9017; P9047; Q5106